=== PATIENT | male | born 1950 | race Caucasian/White ===

== ENCOUNTER 2025-06-22 13:16 | Inpatient (IN) | payer MEDICARE, SELFPAY ==
--- OUTSIDE RECORDS SUMMARY | 2025-06-17 14:30 | XMS_ITS | Encounter Summary ---
Author Organization [facility] Address [facility] – [id number] [address] [place] [address] Care Team Providers Care Rug Cleaner Helper Name Role Phone Brayan Michaud MD Primary Care Provider [phone] Reason for Visit * Reason Comments Knee Pain Started years ago. L eft knee Encounter Details Date Type Department Care Team (Latest Contact Info) Description 06/17/2025 2:30 PM EDT [facility] [address] [place] [phone] Brayan Michaud MD [address] [place] [address], [address] [place], [place] [phone] Primary osteoarthritis of left knee (Primary Dx) Social History Tobacco Use Types Packs/Day Years Used Date Smoking Tobacco: Never Smokeless Tobacco: Never Alcohol Use Standard Drinks/Week Comments Yes 3 (1 standard drink = 0.6 oz pur e alcohol) Barely PHQ-2 Answer Date Recorded Total Score 12 11/01/2024 Childcare Answer Date Recorded Childcare Unknown 03/14/2019 Employment Answer Date Recorded Employment Unknown 03/14/2019 Hunger Screening Answer Date Recorded Within the past 12 months we worried whether our food would run out before we got money to buy more. Never True 06/17/2025 Within the past 12 months th e food we bought just didn't last and we didn't have money to get more. Never True 06/17/2025 Purpose - Life Answer Date Recorded Purpose and direction in life Unknown Sex and Gender Information Value Date Recorded Sex Assigned at Not on file Legal Sex Male 11:45 AM EDT Gender Identity Not on file Sexual Orientation Not on file documented as of this encounter Last Filed Vital Signs Vital Sign Reading Time Taken Comments Blood Pressure 156/94 06/17/2025 2:23 PM EDT Pulse 63 06/17/2025 2:23 PM EDT Temperature 36.5 C (97.7 F) 06/17/2025 2:23 PM EDT Respiratory Rate - - Oxygen Saturation 98% 06/17/2025 2:23 PM EDT Inhaled Oxygen Concentration - - Weight 141 kg (310 lb 12.8 oz) 06/17/2025 2:23 P M EDT Height 172.7 cm (5' 8 ) 06/17/2025 2:23 PM EDT Body Mass Index 47.26 06/17/2025 2:23 PM EDT documented in this encounter Progress Notes * Brayan Michaud MD - 06/17/2025 2:30 PM EDT Subjective Patient ID: Jim Gleason is a 75 y.o. male. He has a history of left knee trouble in the past, having arthroscopic surgery years ago. Recently his knee has been increasingly hurting and he has trouble putting weight on it. No known new injury.It does not give out. It does swell a little sometimes. He has trouble walking just a short distance. Sometimes the top of his L foot hurts also. The following portions of the patient's history were reviewed and updated as appropriate: allergies, current medications, past medical history, past social history, past surgical history, and problemlist. Review of Systems Objective Physical Exam Constitutional: Comments: He is not acutely distressed. Weight is well above ideal target. Musculoskeletal: Comments: L knee has no increased warmth or joint swelling. Some tenderness along the medial joint line. No mass behind the knee. No instability. Assessment/Plan Reviewed with him. Verbal consent obtained, risk of infection reviewed. Under sterile conditions, 1.5 inch 22G needle introduced into the joint space from a medial approach. 2 ml 2% xylocaine and 40 mg Kenalog injected. Well tolerated. Will check xray and do a short trial of NSAID. Further pending his course. If symptoms continue, may need ortho input. Diagnoses and all orders for this visit: Primary osteoarthritis of left knee - X-ray knee left 3 views; Future - naproxen (NAPROSYN) 500 mg tablet; Take 1 tablet (500 mg total) by mouth in the morning and 1 tablet (500 mg total) in the evening. Take with meals. BMI >47 Patient noted to have elevated BMI and the following intervention(s) were applied: encouragement to exercise once his knee issue has been addressed to allow increased activity. documented in this encounter Plan of Treatment Upcoming Encounters Date Type Department Care Team (Late st Contact Info) Description 11/04/2025 1:30 PM EST Office Visit [facility] Internal Medicine/Pediatrics [address] [place] [address] [address] [place] [address] Brayan Michaud MD [address] [place] [address], [address] [place], [place] [phone] 12/23/2025 2:45 PM EDT Office Visit [facility] [address] [place] [address] [place] [address] [phone] Jim Hubbard MD [address] [place] [phone] documented as of this encounter Results * X-ray knee left 3 views (06/18/2025 1:14 PM EDT) Anatomical Region Laterality Modality Lower Extremities, MSK, Knee Left Com puted Radiography 06/18/2025 1:18 PM EDT Narrative 06/18/2025 1:19 PM EDT History: Pain. No known injury. Pain medially Study: Left Knee Three view study. Comparison: None Impression: No acute abnormality in the left knee.Changes due to severe osteoarthropathy are appreciated. There is complete loss in the medial compartment noted. No concerning effusion. Finalized by Leann Painter MD on 06/18/2025 1:19 PM Procedure Note Leann Painter MD - 06/18/2025 History: Pain. No known injury. Pain medially Study: Left Knee Three view study. Comparison: None Impression: No acute abnormality in the left knee.Changes due to severeosteoarthropathy are appreciated. There is complete loss in the medialcompartment noted. No concerning effusion. Finalized by Leann Painter MD on 06/18/2025 1:19 PM Brayan Michaud MD IMG DIAGNOSTIC IMAGING ORDERA BLES Final Result documented in this encounter Visit Diagnoses Diagnosis Primary osteoarthritis of left knee- Primary Primary osteoarthritis of left knee documented in this encounter Additional Health Concerns Assessment Noted Time PHQ-9 Depression Total Score: 12 11/01/ 025 1:00 PM EST A Body Mass Index follow-up plan has been documented for the patient 06/17/2025 8:29 PM EDT documented as of this encounter Care Teams Rug Cleaner Helper Relationship Specialty Start Date End Date Brayan Michaud MD [address] [place] [address], [address] [place] [address] PCP - General Pediatrics 06/13/17 documented as of this encounter
--- OUTSIDE RECORDS SUMMARY | 2025-06-18 12:51 | XMS_ITS | Encounter Summary ---
Author Organization [facility] Address [id number] [address] [place] [address] Care Team Providers Care Extrusion Die Corrector Name Role Phone Brayan Michaud MD Primary Care Provider [phone] Encounter Details Date Type Department Care Team (Latest Contact Info) Description 06/18/2025 12:51 PM EDT - 06/18/2025 11:59 PM EDT Hospital Encounter [facility] - Radiology [address] [place] [address] Brayan Michaud MD [address] [place] [address], [address] [place], [place] [phone] Primary osteoarthritis of left knee Discharge Disposition: Home Social History Tobacco Use Types Packs/Day Years [...] got money to buy more. Never True 06/19/2025 Within the past 12 months th e food we bought just didn't last and we didn't have money to get more. Never True 06/19/2025 Purpose - Life Answer Date Recorded Purpose and direction in life Unknown Sex and Gender Information Value Date Recorded Sex Assigned at Not on file Legal Sex Male 11:45 AM EDT Gender Identity Not on file Sexual Orientation Not on file documented as of this encounter Medications at Time of Discharge ALPRAZolam (XANAX) 0.5 mg tabletIndications:An xiety Take 1 tablet (0.5 mg total) by mouth 2 (two) times a day as needed for anxiety. 20 tablet 10/28/2022 amLODIPine (NORVASC) 10 mg tablet Take 1 tablet (10 mg total) by mouth in the morning. 90 tablet 3 12/27/2024 multivitamin capsule Take 1 capsule by mouth in the morning. naproxen (NAPROSYN) 500 mg tabletIndications:Pr imary osteoarthritis of left knee Take 1 tablet (500 mg total) by mouth in the morning and 1 tablet (500 mg total) in the evening. Take with meals. 30 tablet 06/17/2025 pantoprazole (PROTONIX) 40 mg EC tablet TAKE 1 TABLET BY MOUTH EVERY DAY 90 tablet 09/17/2024 documented as of this encounter Plan of Treatment Upcoming Encounters Date Type Department Care Team (Late st Contact Info) Description 11/04/2025 1:30 PM EST Office Visit [facility] Internal Medicine/Pediatrics [address] [place] [address] [address] [place] [address] Brayan Michaud MD [address] [place] [address], [address] [place], [place] [phone] 12/23/2025 2:45 PM EDT Office Visit [facility] [address] [place] [address] [place] [address] [place] [address] Jim Hubbard MD [address] [place] [address] documented as of this encounter Procedures Procedure Name Priority Date/Time Associated Diagnosis Comments XR KNEE LT 3 VWS Routine 06/18/2025 1:14 PM EDT Primary osteoarthritis of left knee documented in this encounter Results * X-ray knee left [...] Visit Diagnoses Diagnosis Primary osteoarthritis of left knee documented in this encounter Additional Health Concerns Assessment Noted Time PHQ-9 Depression Total Score: 12 11/01/ 025 1:00 PM EST A Body Mass Index follow-up plan has been documented for the patient 06/17/2025 8:29 PM EDT documented as of this encounter Care Teams Extrusion Die Corrector Relationship Specialty Start Date End Date Brayan Michaud MD [address] [place] [address], [address] [place] [address] PCP - General Pediatrics 06/13/17 documented as of this encounter
--- OUTSIDE RECORDS SUMMARY | 2025-06-19 13:15 | XMS_ITS | Encounter Summary ---
Author Organization [facility] Address [facility] [id number] [address] [place] [address] Care Team Providers Care Senior Software Manager Name Role Phone Brayan Michaud MD Primary Care Provider [phone] Reason for Visit * Reason Comments Follow-up Encounter Details Date Type Department Care Team (Late st Contact Info) Description 06/19/2025 1:15 PM EDT Office Visit [facility] [address] [place] [address] [place] [phone] Jim Hubbard MD [address] [place] [address] Vitamin D deficiency (Primary Dx); Elevated PSA Social History Tobacco Use Types Packs/Day Years [...] Sign Reading Time Taken Comments Blood Pressure 179/96 06/19/2025 1:06 PM EDT Pulse 75 06/19/2025 1:06 PM EDT Temperature - - Respiratory Rate - - Oxygen Saturation - - Inhaled Oxygen Concentration - - Weight 140.6 kg (310 lb) 06/19/2025 1:06 PM EDT Height 172.7 cm (5' 8 ) 06/19/2025 1:06 PM EDT Body Mass Index 47.14 06/19/2025 1:06 PM EDT documented in this encounter Progress Notes * Jim Hubbard MD - 06/19/2025 1:15 PM EDT Images from the original note were not included. [address] [place] [phone] Patient: Jim Garcíaura Date of : 1950 Encounter Date: 06/19/2025 History of Present Illness: The patient is a 75 y.o. male, an established patient, and is here for Chief Complaint Patient presents with Follow-up . History of elevated PSA course Here modifying factors time. Quality PSA as below. Regarding vitamin-D deficiency patient does takesupplement daily. Urinalysis today: No results for input(s): EXTPOCURCO , EXTPOCURCH , EXTPOCAPP , EXTPOCURBS , EXTPOCURBIL , EXTPOCUKET , EXTPOCUSPG , EXTPOCUHGB , EXTPOCUPRO , EXTPOCUURO , EXTPOCULEU , EXTPOCUNIT , EXTPOCUWBC , EXTPOCUBLD , EXTPOCURBC , EXTPOCUCRY , EXTPOCUBAC , EXTPOCUTREP , EXTPOCUPH , EXTPOCUL EE in the last 72 hours. Last BUN and creatinine: Lab Results Component Value Date BUN 20 11/01/2024 Lab Results Component Value Date CREATININE 1.39 (H) 11/01/2024 Last PSA: Lab Results Component Value Date PSA 3.96 06/14/2025 PSA 5.88 (H) 03/05/2025 PSA 5.20 (H) 11/01/2024 PSA 4.16 (H) 06/20/2023 PSA 4.22 (H) 10/29/2022 No results found for: PROSTATICSP Past Medical, Family, and Social History Update: The following portions of the patient's history were reviewed and updated as appropriate: allergies, current medications, past family history, past medical history, past social history, past surgicalhistory and problem list. Past Medical History: Diagnosis Date Acute arthritis Left knee Hypertension Hypertriglyceridemia Kidney stones Obesity Obstructive sleep apnea Osteoarthritis Past Surgical History: Procedure Laterality Date ABDOMINAL SURGERY APPENDECTOMY CARPAL TUNNEL RELEASE CATARACT EXTRACTION COLONOSCOPY KNEE ARTHROSCOPY LITHOTRIPSY VASECTOMY Family History Problem Relation Age of Onset Colon cancer Mother Current Outpatient Medications Medication Sig Dispense Refill ALPRAZolam (XANAX) 0.5 mg tablet Take 1 tablet (0.5 mg total) by mouth 2 (two) times a day as needed for anxiety. 20 tablet 0 amLODIPine (NORVASC) 10 mg tablet Take 1 tablet (10 mg total) by mouth in the morning. 90 tablet 3 multivitamin capsule Take 1 capsule by mouth in the morning. naproxen (NAPROSYN) 500 mg tablet Take 1 tablet (500 mg total) by mouth in the morning and 1 tablet(500 mg total) in the evening. Take with meals. 30 tablet 0 pantoprazole (PROTONIX) 40 mg EC tablet TAKE 1 TABLET BY MOUTH EVERY DAY 90 tablet 0 No current facility-administered medications for this visit. (All medications reviewed and updated by provider since last office visit or hospitalization) Allergies: Patient has no known allergies. Tobacco History: Social History Tobacco Use Smoking Status Never Smokeless Tobacco Never (If patient a smoker, smoking cessation counseling offered) Social History: Social History Substance and Sexual Activity Alcohol Use Yes Alcohol/week: 3.0 standard drinks of alcohol Types: 3 Drinks containing 0.5 oz of alcohol per week Comment: Barely Review of Systems: General: Negative for chills and fever. Cardiovascular: Negative for chest pain and shortness of breath. Gastrointestinal: Negative for constipation, diarrhea, nausea, and vomitting. -per HPI Physical Exam: BP (!) 179/96 Pulse 75 Ht 172.7 cm (5' 8 ) Wt (!) 140.6 kg (310 lb) BMI 47.14 kg/m?? Nontoxic no apparent distress. Respirations nonlabored. Skin is dry. Awake alert oriented x3. Assessment and Plan: Jim was seen today for follow-up. Diagnoses and all orders for this visit: Vitamin D deficiency - Vitamin D 25 hydroxy; Future Elevated PSA - Prostatic specific antigen, diagnostic; Future Problem List High Vitamin D deficiency - Primary Overview ==== 03/12/2025 ==== vitamin-D level as low 25. He is already on a daily multivitamin. Plan: Supplement this with the 2000 [employer] vitamin D3. Repeat vitamin-D in about 6 months or so Relevant Orders Vitamin D 25 hydroxy Elevated PSA Overview Size: 5.0 x 4.7?x 3.6 cm Volume: 44 mL PSA Density: 0.12 ng/mL^2 ==== 06/19/2025 ==== PSA did improve to 3.96. Technically normal. ==== 03/12/2025 ==== Established problem, worsening. PSA is higher 5.88. Plan: Per discussion below patient wants PSA in [place] ==== 01/02/2025 ==== ### MRI PIRADS category 2. PSA density 0.12. He understands the 10% false negative rate. We went through the options of proceed with prostate ultrasound biopsy verses observation with continue PSA monitoring. Patient wishes just to have PSA monitoring this point. We did discuss briefly Exosome Dx but generally speaking it tends to give us a middle of the road value. ====11/14/24====PSA 5.20. Up from 4.16 in 2022. TREV limited. He agrees to MRI Relevant Orders Prostatic specific antigen, diagnostic Follow-up: Six months PSA vitamin-D level return clinic Jim Hubbard MD Urology serves as the continuing focal point for providing ongoing care for a single, serious, or complex conditionis history of elevated PSA requiring ongoing follow up. Ordered PSA ordered vitamin-D 2 or more chronic urologic conditions addressed today. This note was created with the assistance of a speech recognition program. While intending to generate a timely document that accurately reflects the content of the visit, no guarantee can be provided that every grammatical or spelling mistake has been or will be identified or corrected. Thank you for your understanding. documented in this encounter Plan of Treatment Upcoming Encounters Date Type Department Care Team (Late st Contact Info) Description 11/04/2025 1:30 PM EST Office Visit [facility] Internal Medicine/Pediatrics [address] [place] [address] [address] [place] [phone] Brayan Michaud MD [address] [place] [address], [address] [place] [address] 12/23/2025 2:45 PM EDT Office Visit [facility] [address] [place] [address] [place] [place] [phone] Jim Hubbard MD [address] [place] [phone] Scheduled Orders Name Type Priority Associated Diagnoses Orde r Schedule Prostatic specific antigen, diagnostic Lab Routine Elevated PSA Expected: 12/17/2025, Expires: 06/19/2026 Vitamin D 25 hydroxy Lab Routine Vitamin D deficiency Expected: 12/17/2025, Expires: 06/19/2026 documented as of this encounter Visit Diagnoses Diagnosis Vitamin D deficiency- Primary Elevated PSA Elevated prostate specific antigen (PSA) documented in this encounter Additional Health Concerns Assessment Noted Time PHQ-9 Depression Total Score: 12 025 1:00 PM EST A Body Mass Index follow-up plan has been documented for the patient 06/17/2025 8:29 PM EDT documented as of this encounter Care Teams Senior Software Manager Relationship Specialty Start Date End Date Brayan Michaud MD [address] [place] [address], [address] [place] [address] PCP - General Pediatrics 06/13/17 documented as of this encounter
--- OUTSIDE RECORDS SUMMARY | 2025-06-21 20:23 | XMS_ITS | Encounter Summary ---
Author Organization [facility] [employer] s tem Address [id number] [address] [place] [address] Care Team Providers Care Lunch Truck Operator Name Role Phone Brayan Michaud MD Primary Care Provider Reason for Visit * Reason Comments Fall Pt reports to ER via EMS after falling from the toilet. Pt reported pain in his ribs to EMS but has no c/o pain at this time. Pt is A&O x4 upon triage. Encounter Details Date Type Department Care Team (Late st Contact Info) Description 06/21/2025 8:23 PM EDT - 06/21/2025 11:28 PM EDT Emergency [facility] - Emergency [address] [place] [phone] Jim Mora, DO [address] [place] [address] Tyson Neil, DO [address] [place] [address] Fall, initial encounter (Primary Dx) Discharge Disposition: Home Social History Tobacco Use [...] got money to buy more. Never True 06/21/2025 Within the past 12 months th e food we bought just didn't last and we didn't have money to get more. Never True 06/21/2025 Purpose - Life Answer Date Recorded Purpose and direction in life Unknown Sex and Gender Information Value Date Recorded Sex Assigned at Not on file Legal Sex Male 11:45 AM EDT Gender Identity Not on file Sexual Orientation Not on file documented as of this encounter Last Filed Vital Signs Vital Sign Reading Time Taken Comments Blood Pressure 162/87 06/21/2025 10:30 PM EDT Pulse 76 06/21/2025 10:30 PM EDT Temperature 36.8 C (98.3 F) 06/21/2025 8:30 PM EDT Respiratory Rate 11 06/21/2025 8:30 PM EDT Oxygen Saturation 90% 06/21/2025 10:30 PM EDT Inhaled Oxygen Concentration - - Weight 140.6 kg (310 lb) 06/21/2025 8:30 PM EDT Height - - Body Mass Index 47.14 06/19/2025 1:06 PM EDT documented in this encounter Discharge Instructions * Attachments The following attachments cannot be sent through Care Everywhere. * Preventing falls ??? ED discharge instructions (Bulgarian) documented in this encounter Medications at Time of Discharge [...] EST Office Visit [facility] [address] [place] [address] 1 [place] [phone] Brayan Michaud MD [facility]5 [facility], [address] [place] [address] 12/23/2025 2:45 PM EDT Office Visit [facility] [address] [place] [address] [place] [address] [place] [phone] Jim Hubbard MD [address] [place] [phone] documented as of this encounter Procedures Procedure Name Priority Date/Time Associated Diagnosis Comments CT CERVICAL SPINE WO CONT STAT 06/21/2025 9:[address] BRAIN WO CONT STAT 06/21/2025 9:43 PM EDT XR RIBS RT 3 VWS W PA CHEST STAT 06/21/2025 9:30 PM EDT EXTRA TUBES BLUE TOP Routine 06/21/2025 8:50 PM EDT LACTATE W/ REFLEX STAT 06/21/2025 8:5 0 PM EDT EXTRA TUBES Routine 06/21/2025 8:50 PM EDT CBC WITH AUTO DIFFERENTIAL STAT 06/21/2025 8:50 PM EDT C-REACTIVE PROTEIN STAT 06/21/2025 8: 50 PM EDT MAGNESIUM STAT 06/21/2025 8:50 PM EDT COMPREHENSIVE METABOLIC PANEL STAT 06/21/2025 8:50 PM EDT documented in this encounter Results * CT cervical spine without contrast (06/21/2025 9:43 PM EDT) Anatomical Region Laterality Modality MSK, Neuro, Spine, C-spine, Spine Covera N/A Computed Tomography 06/21/2025 10:2 2 PM EDT Narrative 06/21/2025 10:24 PM EDT EXAM: CERVICAL SPINE CT WITHOUT CONTRAST CLINICAL INFORMATION: Fall. TECHNIQUE: CT cervical spine was performed utilizing thin section CT imaging without contrast. Coronal and sagittal reformatted images were obtained and reviewed. Automated exposure control was utilized. COMPARISON: None. FINDINGS: There is slight straightening of the normal lordotic curvature of the cervical spine. There is no malalignment within the cervical spine. There is no evidence for an acute displaced fracture. There is no significant loss of the disc space heights. 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 There is no evidence for post-traumatic paravertebral soft tissue abnormalities. The limited visualized lung apices are unremarkable. There is a 3 cm nodule in the left thyroid lobe. IMPRESSION: 1. No evidence for an acute displaced fracture of the cervical spine. 2. There is a 3 cm nodule in the left thyroid lobe. Further evaluation with a follow-up thyroid ultrasound on a routine nonemergent basis is recommended. All CT scans at this facility use dose modulation, iterative reconstruction, and/or weight based dosing when appropriate to reduce radiation dose to as low as reasonably achievable. Finalized by Vaughn Esquivel MD on 06/21/2025 10:24 PM Procedure Note Vaughn Esquivel MD - 06/21/2025 EXAM: CERVICAL SPINE CT WITHOUT CONTRAST CLINICAL INFORMATION: Fall. TECHNIQUE: CT cervical spine was performed utilizing thin section CTimaging without contrast. Coronal and sagittal reformatted images wereobtained and reviewed. Automated exposure control was utilized. COMPARISON: None. FINDINGS: There is slight straightening of the normal lordotic curvature of thecervical spine. There is no malalignment within the cervical spine. Thereis no evidence for an acute displaced fracture. There is no significantloss of the disc space heights. There is focal chronic mild left C2-3facet osteoarthropathy. There is no evidence for post-traumatic paravertebralsoft tissue abnormalities. The limited visualized lung apices areunremarkable. There is a 3 cm nodule in the left thyroid lobe. IMPRESSION: 1. No evidence for an acute displaced fracture of the cervical spine. 2. There is a 3 cm nodule in the left thyroid lobe. Further evaluationwith a follow-up thyroid ultrasound on a routine nonemergent basis isrecommended. All CT scans at this facility use dose modulation, iterativereconstruction, and/or weight based dosing when appropriate to reduceradiation dose to as low as reasonably achievable. Finalized by Vaughn Esquivel MD on 06/21/2025 10:24 PM Jim Mora DO IMG CT ORDERABLES Final Result * CT brain without contrast (06/21/2025 9:43 PM EDT) Anatomical Region Laterality Modality Neuro, Head, Head and Neck, Neuro Covera N/A Computed Tomography 06/21/2025 10:2 1 PM EDT Narrative 06/21/2025 10:[address]contrast head CT, 06/21/2025 History: Pain, post fall Comparison: None Technique: Multi-detector CT performed through the brain without IV contrast. Automated exposure control was utilized. Findings: There is no intracranial hemorrhage, extra-axial fluid collection, mass effect, or hydrocephalus. There is no midline shift. Basilar cisterns are patent. Briones-white matter differentiation is appropriate. No definite acute infarct identified. The visualized orbits, paranasal sinuses and mastoid air cells are unremarkable. Osseous structures are intact. IMPRESSION: 1. No acute intracranial process. All CT scans at this facility use dose modulation, iterative reconstruction, and/or weight based dosing when appropriate to reduce radiation dose to as low as reasonably achievable. Finalized by Marin Garcia MD on 06/21/2025 10:25 PM Procedure Note Marin Garcia MD - 06/21/[address], 06/21/2025 History: Pain, post fall Comparison: None Technique: Multi-detector CT performed through the brain without IVcontrast. Automated exposure control was utilized. Findings: There is no intracranial hemorrhage, extra-axial fluidcollection, mass effect, or hydrocephalus. There is no midline shift.Basilar cisterns are patent. Briones-white matter differentiation isappropriate. No definite acute infarct identified. The visualizedorbits, paranasal sinuses and mastoid air cells are unremarkable. Osseous structures are intact. IMPRESSION: 1. No acute intracranial process. All CT scans at this facility use dose modulation, iterativereconstruction, and/or weight based dosing when appropriate to reduceradiation dose to as low as reasonably achievable. Finalized by Marin Garcia MD on 06/21/2025 10:25 PM Jim Mora DO IMG CT ORDERABLES Final Result * X-ray ribs right 3 views with pa chest (06/21/2025 9:30 PM EDT) Anatomical Region Laterality Modality MSK, Chest Right Computed Radiogr aphy 06/21/2025 10:1 9 PM EDT Narrative 06/21/2025 10:23 PM EDT History: Right-sided chest Pain status post fall Exam/Technique: AP view of the chest followed by AP and oblique views for evaluation of the right rib cage Comparison: No relevant prior studies available. Findings/impression: There is elevation of the right diaphragm likely on a chronic basis. Cardiac size stable. There is mild prominence of the central vascular tree likely due to low lung volume. There is no gross focal consolidation, pleural effusion or pneumothorax. There is no gross displaced rib fracture however, evaluation is compromised by patient's body habitus and x-ray penetration. Finalized by Gale Petty MD on 06/21/2025 10:23 PM Procedure Note Gale Petty MD - 06/21/2025 History: Right-sided chest Pain status post fall Exam/Technique: AP view of the chest followed by AP and oblique views for evaluation ofthe right rib cage Comparison: No relevant prior studies available. Findings/impression: There is elevation of the right diaphragm likely on a chronic basis.Cardiac size stable. There is mild prominence of the central vascular treelikely due to low lung volume. There is no gross focal consolidation, pleural effusion or pneumothorax. There is no gross displaced rib fracture however, evaluation iscompromised by patient's body habitus and x-ray penetration. Finalized by Gale Petty MD on 06/21/2025 10:23 PM us Jim Mora DO IMG DIAGNOSTIC IMAGING ORDERABLES Final Result * Light Blue Top (06/21/2025 8:50 PM EDT) Extra Tube Auto Resulted 06/21/2025 10:01 PM EDT [facility] Blood Venous blood / Unknown 06/21/2025 8:50 PM EDT 06/21/2025 8:52 PM EDT us Jim Mora DO LAB BLOOD ORDERABLES Fi nal Result Performing Organization Address City/[facility]/ZIP Co de Phone Number [address] [place] [address], [place] * Magnesium (06/21/2025 8:50 PM EDT) MAGNESIUM 2.1 1.8 - 2.6 mg/dL 06/21/2025 9:16 PM EDT [facility] Blood Venous blood / Unknown Venipuncture / Unknown 06/21/2025 8:50 PM EDT 06/21/2025 8:52 PM EDT us Jim Mora DO LAB BLOOD ORDERABLES Fi nal Result Performing Organization Address City/[facility]/ZIP Co de Phone Number [address] [place] [address], [place] * Lactate w/ Reflex (06/21/2025 8:50 PM EDT) LACTATE W/REFLEX 1.2 0.4 - 2.0 mmol/L 06/21/2025 9:11 PM EDT [facility] Blood Venous blood / Unknown Venipuncture / Unknown 06/21/2025 8:50 PM EDT 06/21/2025 8:52 PM EDT Narrative [facility] - 06/21/2025 9:11 PM EDT Result did not trigger repeat Lactate, re-order if needed. us Jim Mora DO LAB BLOOD ORDERABLES Fi nal Result Performing Organization Address City/[facility]/ZIP Co de Phone Number [address] [place] [address], [place] * C-reactive protein (06/21/2025 8:50 PM EDT) C REACTIVE PROTEIN <0.5 <=0.7 mg/dL 06/21/2025 9:16 PM EDT [facility] Blood Venous blood / Unknown Venipuncture / Unknown 06/21/2025 8:50 PM EDT 06/21/2025 8:52 PM EDT us Jim Mora DO LAB BLOOD ORDERABLES Fi nal Result Performing Organization Address City/[facility] Co de Phone Number [address] [place] [address], [place] * (ABNORMAL) Comprehensive metabolic panel (06/21/2025 8:50 PM EDT) SODIUM 140 134 - 146 mmol/L 06/21/2025 9:16 PM EDT [facility] POTASSIUM 3.3(L) 3.5 - 5.0 mmol/L 06/21/2025 9:16 PM EDT [facility] CHLORIDE 105 98 - 109 mmol/L 06/21/2025 9:16 PM EDT [facility] CARBON DIOXIDE 25 22 - 32 mmol/L 06/21/2025 9:16 PM EDT [facility] ANION GAP 10 5 - 15 mmol/L 06/21/2025 9:16 PM EDT [facility] BLOOD UREA NITROGEN 30(H) 5 - 27 mg/dL 06/21/2025 9:16 PM EDT [facility] CREATININE 1.29(H) 0.70 - 1.20 mg/dL 06/21/2025 9:16 PM EDT [facility] Comment:METHOD TRACEABLE TO IDKY STANDARD GLUCOSE 118(H) 65 - 99 mg/dL 06/21/2025 9:16 PM EDT [facility] CALCIUM 8.7 8.5 - 10.5 mg/dL 06/21/2025 9:16 PM EDT [facility] TOTAL PROTEIN 7.5 6.0 - 8.0 g/dL 06/21/2025 9:16 PM EDT [facility] ALBUMIN 3.9 3.2 - 5.3 g/dL 06/21/2025 9:16 PM EDT [facility] ALKALINE PHOSPHATASE 79 39 - 130 U/L 06/21/2025 9:16 PM EDT [facility] AST 27 <=41 U/L 06/21/2025 9:16 PM EDT [facility] ALT 23 <=40 U/L 06/21/2025 9:16 PM EDT [facility] BILIRUBIN,TOTAL 1.1 0.3 - 1.2 mg/dL 06/21/2025 9:16 PM EDT [facility] EGFR Non-Race Dependent 59(L) >=60 ml/min/1.7 3sq.m 06/21/2025 9:16 PM EDT [facility] Comment: eGFR not reported due to non-numeric value for Creatinine. Reported eGFR is based on the CKD-EPI 2020 equation that does not use a race coefficient. Blood Venous blood / Unknown Venipuncture / Unknown 06/21/2025 8:50 PM EDT 06/21/2025 8:52 PM EDT us Jim Mora DO LAB BLOOD ORDERABLES Fi nal Result [facility] [address] [place] [address], [place] * (ABNORMAL) CBC auto differential (06/21/2025 8:50 PM EDT) WBC 12.7(H) 4 - 11 x10E9/L 06/21/2025 8:59 PM EDT [facility] RBC Count 4.85 4.1 - 5.7 X10E12/L 06/21/2025 8:59 PM EDT [facility] Hemoglobin 14.3 13 - 17 g/dL 06/21/2025 8:59 PM EDT [facility] Hematocrit 42.7 39 - 50 % 06/21/2025 8:59 PM EDT [facility] MCV 88 80 - 100 fL 06/21/2025 8:59 PM EDT [facility] MCH 29.4 27 - 34 pg 06/21/2025 8:59 PM EDT [facility] MCHC 33.4 32 - 36 g/dL 06/21/2025 8:59 PM EDT [facility] RDW 14.1 11.5 - 15 % 06/21/2025 8:59 PM EDT [facility] Platelet Count 210 150 - 450 X10E9/L 06/21/2025 8:59 PM EDT [facility] MPV 9.9 7 - 12 fL 06/21/2025 8:59 PM EDT [facility] Neutrophils % 85.1 % 06/21/2025 8:59 PM EDT [facility] Lymphocytes % 8.4 % 06/21/2025 8:59 PM EDT [facility] Monocytes % 5.4 % 06/21/2025 8:59 PM EDT [facility] Eosinophils % 0.8 % 06/21/2025 8:59 PM EDT [facility] Basophils % 0.3 % 06/21/2025 8:59 PM EDT [facility] Neutrophils Absolute (A) 10.8(H) 1.5 - 6.6 10*3/uL 06/21/2025 8:59 PM EDT [facility] Lymphocytes Absolute 1.1 1.0 - 3.5 10*3/uL 06/21/2025 8:59 PM EDT [facility] Monocytes Absolute 0.7 0.0 - 0.9 10*3/uL 06/21/2025 8:59 PM EDT [facility] Eosinophils Absolute 0.1 0.0 - 0.4 10*3/uL 06/21/2025 8:59 PM EDT [facility] Basophils Absolute 0.0 0.0 - 0.2 10*3/uL 06/21/2025 8:59 PM EDT [facility] Differential Type AUTOMATED DIFFERENTIAL 06/21/2025 8:59 PM EDT [facility] Blood Venous blood / Unknown Venipuncture / Unknown 06/21/2025 8:50 PM EDT 06/21/2025 8:52 PM EDT us Jim Mora DO LAB BLOOD ORDERABLES nal Result [facility] [address] [facility] [place] [address], documented in this encounter Visit Diagnoses Diagnosis Fall, initial encounter- Primary documented in this encounter Administered Medications Inactive Administered Medications - up to 3 most recent administrations Medication Order MAR Action Action Date Dose Rate Site potassium chloride (KLOR-CON M 20) CR tablet 40 mEq 40 mEq, oral, Once, On Tue06/21/25 at 212, For 1 dose, Do not crush or chew. Given 06/21/2025 9:38 PM EDT 40 mEq documented in this encounter Active and Recently Administered Medications Times are shown in EDT. Scheduled Medication Order 06/19/2025 06/20/2025 06/21/2025 potassium chloride (KLOR-CON M 20) CR tablet 40 mEq (COMPLETED) 40 mEq, oral, Once, On Tue06/21/25 at 212, For 1 dose, Do not crush or chew. 2137 (Given - Provid er: Carolina Burroughs RN) documented in this encounter Additional Health Concerns Assessment Noted Time PHQ-9 Depression Total Score: 12 11/01/ 025 1:00 PM EST A Body Mass Index follow-up plan has been documented for the patient 06/17/2025 8:29 PM EDT documented as of this encounter Care Teams Lunch Truck Operator Relationship Specialty Start Date End Date Brayan Michaud MD [address] [place] [address], [address] [place] [address] PCP - General Pediatrics 06/13/17 documented as of this encounter
[2025-06-22] VITALS (31 sets, daily range): BP systolic 129–182; BP diastolic 76–99; PULSE 61–88; TEMP 36.6–37.2; O2SAT 93–100; BMI 38.0; BMI 43.0
--- OUTSIDE RECORDS SUMMARY | 2025-06-22 13:23 | XMS_ITS | Encounter Summary ---
Author Organization [employer] Sys [employer] Address [id number] [address] [place] [address] Care Team Providers Care Training And Development Officer Name Role Phone Brayan Michaud MD Primary Care Provider [phone] Encounter Details Date Type Department Care Team (Latest Contact Info) Description 06/18/2025 Travel Social History Tobacco Use Types Packs/Day Years [...] on file documented as of this encounter Plan of Treatment Upcoming Encounters Date Type Department Care Team (Late st Contact Info) Description 11/04/2025 1:30 PM EST Office Visit [facility] [address] [place] [address] 1 [place] [phone] Brayan Michaud MD [address] [place] [address], 1 [place] [address] 12/23/2025 2:45 PM EDT Office Visit [facility] [address] [place] [address] [address] [facility] [address] Jim Hubbard MD [address] [place] [address] documented as of this encounter Visit Diagnoses Not on filedocumented in this encounter Additional Health Concerns Assessment Noted Time PHQ-9 Depression Total Score: 12 025 1:00 PM EST A Body Mass Index follow-up plan has been documented for the patient 06/17/2025 8:29 PM EDT documented as of this encounter Care Teams Training And Development Officer Relationship Specialty Start Date End Date Brayan Michaud MD [address] [place] [address], [address] [place] [address] PCP - General Pediatrics 06/13/17 documented as of this encounter
--- OUTSIDE RECORDS SUMMARY | 2025-06-22 13:23 | XMS_ITS | Clinical Summary ---
Author Organization [facility] Address [address] [place] [address] Care Team Providers Care Cheese Blender Name Role Phone Unavailable Primary Care Provider Unavailabl e Social History Tobacco Use Types Packs/Day Years Used Date Smoking Tobacco: Never Assessed Sex and Gender Information Value Date Recorded Sex Assigned at Not on file Legal Sex Male 7:20 PM EDT Gender Identity Not on file Sexual Orientation Not on file Plan of Treatment Health Maintenance Due Date Last Done Comments CT Colonography 1952 Colonoscopy 1952 Colorectal Cancer Screening 1950 FIT-DNA 1952 FIT 1950 FOBT 1950 Sigmoidoscopy 1950 Pneumococcal Vaccine: 65+ Ye ars (1 of 1 - PCV) 2002 Influenza Vaccine (#1) 2025 1, 07/01/2020, 07/07/2019, Additional history exists
--- OUTSIDE RECORDS SUMMARY | 2025-06-22 13:23 | XMS_ITS | Encounter Summary ---
Author Organization [facility] [employer] s tem Address [id number] [address] [place] [address] Care Team Providers Care Ent Consultant Name Role Phone Brayan Michaud MD Primary Care Provider [phone] Encounter Details Date Type Department Care Team (Late st Contact Info) Description 06/18/2025 [facility] [address] [place] [phone] Brayan Michaud MD [address] [place] [address], 1 [place], [place] [phone] X-ray knee left 3 views Social History Tobacco Use Types Packs/Day Years [...] EST Office Visit [facility] [address] [place] [address] [address] [place] [phone] Brayan Michaud MD [address] [place] [address], [address] [place], [place] [phone] 12/23/2025 2:45 PM EDT Office Visit [facility] [address] [place] [address] [place] [address] [place] [address] Jim Hubbard MD [address] [place] [address] documented as of this encounter Visit Diagnoses Not on filedocumented in this encounter Additional Health Concerns Assessment Noted Time PHQ-9 Depression Total Score: 12 025 1:00 PM EST A Body Mass Index follow-up plan has been documented for the patient 06/17/2025 8:29 PM EDT documented as of this encounter Care Teams Ent Consultant Relationship Specialty Start Date End Date Brayan Michaud MD [address] [place] [address], [address] [place], [place] [phone] PCP - General Pediatrics 06/13/17 documented as of this encounter
--- OUTSIDE RECORDS SUMMARY | 2025-06-22 13:23 | XMS_ITS | Encounter Summary ---
Author Organization [employer] Address [facility]-[id number] [address] [place] [address] Care Team Providers Care Maintenance Mechanic Helper Name Role Phone Brayan Michaud MD Primary Care Provider Reason for Visit * Reason Comments Med Refill Encounter Details Date Type Department Care Team (Late Contact Info) Description 12/25/2021 Refill [facility] [address] [place] [address] Brayan Michaud MD [address] [place] [address], [address] [place], [place] [phone] Social History Tobacco Use Types Packs/Day Years Used Date Smoking Tobacco: Never Smokeless Tobacco: Never Alcohol Use Standard Drinks/Week Comments Yes 0 (1 standard drink = 0.6 oz pur e alcohol) Barely PHQ-2 Answer Date Recorded Total Score 1 10/26/2021 Childcare Answer Date Recorded Childcare Unknown 03/14/2019 Employment Answer Date Recorded Employment Unknown 03/14/2019 Purpose - Life Answer Date Recorded Purpose and direction in life Unknown Sex and Gender Information Value Date Recorded Sex Assigned at Not on file Legal Sex Male 11:45 AM EDT Gender Identity Not on file Sexual Orientation Not on file documented as of this encounter Plan of Treatment Upcoming Encounters Date Type Department Care Team (Late Contact Info) Description 11/04/2025 1:30 PM EST Office Visit [facility] [address] [place] [address] Brayan Michaud MD [address] [place] [address], [address] [place] [address] 12/23/2025 2:45 PM EDT Office Visit [facility] [address] [place] [address] [place] [address] [place] [phone] Jim Hubbard MD [address] [place] [phone] documented as of this encounter Visit Diagnoses Not on filedocumented in this encounter Additional Health Concerns Assessment Noted Time PHQ-9 Depression Total Score: 1 10/26/19 22 1:00 PM EST documented as of this encounter Care Teams Maintenance Mechanic Helper Relationship Specialty Start Date End Date Brayan Michaud MD [address] [place] [address], [address] [place] [address] PCP - General Pediatrics 06/13/17 documented as of this encounter
--- OUTSIDE RECORDS SUMMARY | 2025-06-22 13:23 | XMS_ITS | Encounter Summary ---
Author Organization [employer] Address [id number] [address] [place] [address] Care Team Providers Care Junior Sales Representative Name Role Phone Brayan Michaud MD Primary Care Provider [phone] Encounter Details Date Type Department Care Team (Latest Contact Info) Description 06/14/2025 Travel Social History Tobacco Use Types Packs/Day [...] got money to buy more. Never True 03/12/2025 Within the past 12 months th e food we bought just didn't last and we didn't have money to get more. Never True 03/12/2025 Purpose - Life Answer Date Recorded Purpose [...] EST Office Visit [facility] [address] [place] [address] 1 [place] [phone] Brayan Michaud MD [address] [place] [address], 1 [place] [address] 12/23/2025 2:45 PM EDT Office Visit [facility] [address] [place] [address] [place] [address] [place] [address] Jim Hubbard MD [address] [place] [address] documented as of this encounter Visit Diagnoses Not on filedocumented in this encounter Additional Health Concerns Assessment Noted Time PHQ-9 Depression Total Score: 12 025 1:00 PM EST documented as of this encounter Care Teams Junior Sales Representative Relationship Specialty Start Date End Date Brayan Michaud MD [address] [place] [address], [address] [place] [address] PCP - General Pediatrics 06/13/17 documented as of this encounter
--- OUTSIDE RECORDS SUMMARY | 2025-06-22 13:23 | XMS_ITS | Clinical Summary ---
Author Organization [facility] Address [address] [place] [address] Care Team Providers Care Snubber Name Role Phone Unavailable Primary Care Provider Unavailabl e Medications tamsulosin (Flomax) 0.4 mg 24 hr capsuleIndicatio ns:Retention of urine, unspecified TAKE 1 CAPSULE BY MOUTH EVERY DAY 90 capsule 3 09/03/2024 Active Social History Tobacco Use Types Packs/Day Years Used Date Smoking Tobacco: Never Assessed [place] Safety & Environment Answer Date Rec orded Fear of Current or Ex-Partner Not on file Emotionally Abused Not on file 11/24/2023 Physically Abused Not on file 11/24/2023 Sexually Abused Not on file 11/24/2023 Physically or Sexually Abused Not on file Sex and Gender Information Value Date Recorded Sex Assigned at Not on file Legal Sex Male 12:07 AM EDT Gender Identity Not on file Sexual Orientation Not on file Last Filed Vital Signs Vital Sign Reading Time Taken Comments Blood Pressure 168/95 04/16/2022 9:40 AM EDT Pulse 70 04/16/2022 9:40 AM EDT Temperature - - Respiratory Rate - - Oxygen Saturation - - Inhaled Oxygen Concentration - - Weight 148 kg (326 lb) 04/16/2022 9:38 AM EDT Height 177.8 cm (5' 10 ) 04/16/2022 9:38 AM EDT Body Mass Index 46.78 04/16/2022 9:38 AM EDT Plan of Treatment Health Maintenance Due Date Last Done Comments CT Colonography 1952 Colonoscopy 1952 Colorectal Cancer Screening 1952 FIT-DNA 1952 FIT 1952 FOBT 1950 Medicare Annual Wellness (AWV) 1952 Sigmoidoscopy 1952 Depression Screening 1964 Adult Tetanus 1974 Pneumococcal Vaccine: 50+ Years (1 of 1 - PCV) 2002 Zoster Vaccines (1 of 2) 2002 Fall Risk Screening 2017 COVID-19 Vaccine (1 - season) 2025 Influenza Vaccine (#1) 2025 , 07/01/2020, 07/07/2019, Additional history exists HIB Vaccines Aged Out No longer eligi ble based on patient's age to complete this topic HPV Vaccines Aged Out No longer eligi ble based on patient's age to complete this topic IPV Vaccines Aged Out No longer eligi ble based on patient's age to complete this topic Meningococcal B Vaccine Aged Out No l onger eligible based on patient's age to complete this topic Meningococcal Vaccine Aged Out No harvey luis armando eligible based on patient's age to complete this topic Rotavirus Vaccines Aged Out No longer eligible based on patient's age to complete this topic Insurance AETNA MEDICARE ADVANTAGE
--- OUTSIDE RECORDS SUMMARY | 2025-06-22 13:23 | XMS_ITS | Encounter Summary ---
Author Organization [facility] Address [address] [place] [address] Care Team Providers Care Billet Shearer Name Role Phone Unavailable Primary Care Provider Unavailabl e Encounter Details Date Type Department Care Team (Late st Contact Info) Description 04/02/2024 Abstract [facility] [address] [place] [address] Yuki Crain, [facility] [address] [place] [address] Social History Tobacco Use Types Packs/Day Years Used Date Smoking Tobacco: Never Assessed Sex and Gender Information Value Date Recorded Sex Assigned at Not on file Legal Sex Male 7:20 PM EDT Gender Identity Not on file Sexual Orientation Not on file documented as of this encounter Plan of Treatment Not on file documented as of this encounter Visit Diagnoses Not on filedocumented in this encounter
--- OUTSIDE RECORDS SUMMARY | 2025-06-22 13:23 | XMS_ITS | Encounter Summary ---
Author Organization [employer] Address [facility] [id number] [address] [place] [address] Care Team Providers Care Hand Counter Name Role Phone Brayan Michaud MD Primary Care Provider [phone] Encounter Details Date Type Department Care Team (Latest Contact Info) Description 06/21/2025 Travel Social History Tobacco Use Types Packs/Day [...] EST Office Visit [facility] [address] [place] [address] 1 [place] [phone] Brayan Michaud MD [address] [place] [address], 1 [place] [address] 12/23/2025 2:45 PM EDT Office Visit [facility] [address] [place] [address] [address] [facility] [address] Jim Hubbard MD [address] [place] [address] documented as of this encounter Visit Diagnoses Not on filedocumented in this encounter Additional Health Concerns Assessment Noted Time PHQ-9 Depression Total Score: 12 025 1:00 PM EST A Body Mass Index follow-up plan has been documented for the patient 06/17/2025 8:29 PM EDT documented as of this encounter Care Teams Hand Counter Relationship Specialty Start Date End Date Brayan Michaud MD [address] [place] [address], [address] [place] [address] PCP - General Pediatrics 06/13/17 documented as of this encounter
--- OUTSIDE RECORDS SUMMARY | 2025-06-22 13:23 | XMS_ITS | Clinical Summary ---
Author Organization [employer] Address [facility] [id number] [address] [place] [address] Care Team Providers Care Ap Processor Name Role Phone Brayan Michaud MD Primary Care Provider [phone] Allergies No known active allergies Medications multivitamin capsule Take 1 capsule by mouth in the morning. Active ALPRAZolam (XANAX) 0.5 mg tabletIndications:A nxiety Take 1 tablet (0.5 mg total) by mouth 2 (two) times a day as needed for anxiety. 20 tablet 3 Active pantoprazole (PROTONIX) 40 mg EC tablet TAKE 1 TABLET BY MOUTH EVERY DAY 90 tablet 4 Active amLODIPine (NORVASC) 10 mg tablet Take 1 tablet (10 mg total) by mouth in the morning. 90 tablet 3 5 Active naproxen (NAPROSYN) 500 mg tabletIndications:P rimary osteoarthritis of left knee Take 1 tablet (500 mg total) by mouth in the morning and 1 tablet (500 mg total) in the evening. Take with meals. 30 tablet 5 Active Active Problems Problem Noted Date Diagnosed Date Vitamin D deficiency 03/12/2025 Overview (03/12/2025): ==== 03/12/2025 ==== vitamin-D level as low 25. He is already on a daily multivitamin. Plan: Supplement this with the 2000 [employer] vitamin D3. Repeat vitamin-D in about 6 months or so Elevated PSA 11/14/2024 Overview (06/19/2025): Size: 5.0 x 4.7?x 3.6 cm Volume: 44 mL PSA Density: 0.12 ng/mL^2 ==== 06/19/2025 ==== PSA did improve to 3.96. Technically normal. ==== 03/12/2025 ==== Established problem, worsening. PSA is higher 5.88. Plan: Per discussion below patient wants PSA in [place] ==== 01/02/2025 ==== ### MRI PIRADS category [...] 2022. TREV limited. He agrees to MRI Assessment & Plan (03/12/2025 2:41 PM EDT): We discussed proceeding with a straight with a prostate ultrasound biopsy. Waiting another 3 months for another PSA potential prostate ultrasound biopsy verses not worrying about this and being satisfied with the 90% negative predictive value. He chooses to watch the PSA see him back in 3 months Assessment & Plan (11/14/2024 2:08 PM EST): We will have him meet with Dr. Hubbard to review the results. Hypertriglyceridemia 10/21/2020 Benign prostatic hyperplasia with nocturia 10/21 Overview (03/12/2025): ==== 03/12/2025 ==== takes Flomax infrequently tolerates. Some modicum of benefit derived. Continue on current course. ==== 01/02/2025 ==== does have improvement in stream. Some very mild lightheadedness with a. This is getting better. He is on 1 tablet. We discussed per surveillance being very careful when changing position. He is comfortable at this point continue with the current course. is as well. Will monitor his course ====11/14/24====LUTS that were improved while he was taking Flomax 0.4mg. He wants to restart and is interested in taking 0.8mg nightly Multinodular goiter 10/21/2020 Other chest pain 09/21/2019 Essential hypertension 09/21/2019 Class 3 severe obesity due t o excess calories without serious comorbidity with body mass index (BMI) of 45.0 to 49.9 in adult 09/21/2019 Obstructive sleep apnea Osteoarthritis Kidney stones Overview (03/12/2025): ==== 03/12/2025 ==== has 2 small stones in the right 1 on left. By location nonobstructing. He was asymptomatic. Satisfied with the observation. Consideration for surveillance can be KUB down the road. I directly visualize the films with the patient and his . ====11/14/24==== history of kidney stones. I do not have his records, but he reports that he underwent percutaneous nephrolithotomy and ureteroscopy in . We will discuss surveillance imaging after we work up the elevated PSA Assessment & Plan (11/14/2024 2:10 PM EST): UA today dips for trace blood. I will send for microscopic exam and call him if positive Encounters Date Type Department Care Team Description 06/21/2025 8:23 PM EDT - 06/21/2025 11:28 PM EDT Emergency [facility] - Emergency [address] [place] [phone] Jim Mora, Tyson Corral, DO Samuel, initial encounter (Primary Dx) Discharge Disposition: Home 06/21/2025 Travel 06/19/2025 1:15 PM EDT Office Visit [facility] [address] [place] [phone] Jim Hubbard MD Vitamin D deficiency (Primary Dx); Elevated PSA 06/18/2025 12:51 PM EDT - 06/18/2025 11:59 PM EDT Hospital Encounter [facility] - Radiology [address] [facility] [place] [phone] Brayan Michaud MD Primary osteoarthritis of left knee Discharge Disposition: Home 06/18/2025 Results Follow-Up [facility] [address] [facility] [place] [phone] Brayan Michaud MD X-ray knee left 3 views 06/18/2025 Travel 06/17/2025 2:30 PM EDT Office Visit [facility] [address] [place] [address] Brayan Michaud MD Primary osteoarthritis of left knee (Primary Dx) 06/14/2025 Travel from Last 3 Months Immunizations Immunization Administration Dates Next Due COVID-19, mRNA, LNP-S, PF, 100mcg/0.5mL Dose ,11/28/2020 Influenza High Dose Preservative Free IM 019 Influenza Vaccine, Quadrivalent, Adjuvanted 06/04 Influenza, High-dose, Quadrivalent 07/10/2021 Influenza, Im Trivalent Preservative 08/07/2014, 09/07/2013 Influenza, Injectable, quadrivalent (PF) 018 Family History Medical History Relation Name Comments Colon cancer Mother Maria Isabel Relation Name Status Comments Mother Maria Isabel Social History Tobacco Use Types Packs/Day Years Used Date Smoking Tobacco: Never Smokeless Tobacco: Never Tobacco Cessation:Counseling Given: Not Answered Alcohol Use Standard Drinks/Week Comments Yes 3 [...] (310 lb) 06/21/2025 8:30 PM EDT Height 172.7 cm (5' 8 ) 06/19/2025 1:06 PM EDT Body Mass Index 47.14 06/19/2025 1:06 PM EDT Plan of Treatment Upcoming Encounters Date Type Department Care Team (Late st Contact Info) Description 11/04/2025 1:30 PM EST Office Visit [facility] [address] [place] [address] 1 [place] [address] Brayan Michaud MD [address] [place] [address], [address] [place], [place] [id number] 12/23/2025 2:45 PM EDT Office Visit [facility] [address] [place] [address] [place] [address] [place] [address] Jim Hubbard MD [address] [place] [address] Health Maintenance Due Date Last Done Comments DTaP,Tdap and Td Vaccines (1 - Tdap) 1971 Colonoscopy 1997 Zoster (Shingles) Vaccine (1 of 2) 2002 COVID-19 Vaccine (2023-2 5 season) 2025 07/17/2024, 07/18/2023, 08/16/2022, Additional history exists Influenza Vaccine 06/03/2025 07/17/2024, , 08/23/2022, Additional history exists Depression Screening 11/01/2025 11/01/2024 Fall Risk Screening 11/01/2025 11/01/2024 Medicare Annual Wellness Visit 11/01/2025 0 11/01/2024, 10/31/2023, 10/28/2022, Additional history exists Adult BMI Follow Up Plan 06/17/2026 06/17/2025 Adult BMI Screening 06/21/2026 06/21/2025 Tobacco Screening 06/21/2026 06/21/2025 Medical Devices Not on file Procedures Procedure Name Priority Date/Time Associated Diagnosis Comments CT CERVICAL SPINE WO CONT STAT 06/21/2025 9:[address] BRAIN WO CONT STAT 06/21/2025 9:43 PM EDT XR RIBS RT 3 VWS W PA CHEST STAT 06/21/2025 9:30 PM EDT EXTRA TUBES BLUE TOP Routine 06/21/2025 8:50 PM EDT EXTRA TUBES Routine 06/21/2025 8:50 PM EDT MAGNESIUM STAT 06/21/2025 8:50 PM EDT LACTATE W/ REFLEX STAT 06/21/2025 8:5 0 PM EDT C-REACTIVE PROTEIN STAT 06/21/2025 8: 50 PM EDT COMPREHENSIVE METABOLIC PANEL STAT 06/21/2025 8:50 PM EDT CBC WITH AUTO DIFFERENTIAL STAT 06/21/2025 8:50 PM EDT XR KNEE LT 3 VWS Routine 06/18/2025 1:14 PM EDT Primary osteoarthritis of left knee PROSTATIC SPECIFIC ANTIGEN, DIAGNOSTIC Routine 06/14/2025 11:35 AM EDT Elevated PSA from Last 3 Months Results * CT cervical spine without contrast [...] Tube Auto Resulted 06/21/2025 10:01 PM EDT [facility] Blood Venous blood / Unknown 06/21/2025 8:50 PM EDT 06/21/2025 8:52 PM EDT us Jim Mora DO LAB BLOOD ORDERABLES Fi nal Result Performing Organization Address [facility] Co de Phone Number [address] [place] [address], [place] * Lactate w/ Reflex (06/21/2025 8:50 PM EDT) LACTATE W/REFLEX 1.2 0.4 - 2.0 mmol/L 06/21/2025 9:11 PM EDT [facility] Blood Venous blood / Unknown Venipuncture / Unknown 06/21/2025 8:50 PM EDT 06/21/2025 8:52 PM EDT Narrative [facility] - 06/21/2025 9:11 PM EDT Result did not trigger repeat Lactate, re-order if needed. us Jim Mora DO LAB BLOOD ORDERABLES Fi nal Result Performing Organization Address City/[facility] Co de Phone Number [address] [place] [address], [place] * (ABNORMAL) CBC auto differential (06/21/2025 8:50 PM EDT) [facility] Signature WBC 12.7(H) 4 - 11 x10E9/L 06/21/2025 8:59 PM EDT [facility] RBC Count 4.85 4.1 - 5.7 X10E12/L 06/21/2025 8:59 PM EDT [facility] Hemoglobin 14.3 13 - 17 g/dL 06/21/2025 8:59 PM EDT [facility] Hematocrit 42.7 39 - 50 % 06/21/2025 8:59 PM EDT [facility] MCV 88 80 - 100 fL 06/21/2025 8:59 PM EDT [facility] MCH 29.4 27 - 34 pg 06/21/2025 8:59 PM EDT [facility] MCHC 33.4 32 - 36 g/dL 06/21/2025 8:59 PM EDT [facility] RDW 14.1 11.5 - 15 % 06/21/2025 8:59 PM EDT [facility] Platelet Count 210 150 - 450 X10E9/L 06/21/2025 8:59 PM EDT [facility] MPV 9.9 7 - 12 fL 06/21/2025 8:59 PM EDT [facility] Neutrophils % 85.1 % 06/21/2025 8:59 PM EDT [facility] Lymphocytes % 8.4 % 06/21/2025 8:59 PM EDT [facility] Monocytes % 5.4 % 06/21/2025 8:59 PM EDT [facility] Eosinophils % 0.8 % 06/21/2025 8:59 PM EDT [facility] Basophils % 0.3 % 06/21/2025 8:59 PM EDT [facility] Neutrophils Absolute (A) 10.8(H) 1.5 - 6.6 10*3/uL 06/21/2025 8:59 PM EDT [facility] Lymphocytes Absolute 1.1 1.0 - 3.5 10*3/uL 06/21/2025 8:59 PM EDT [facility] Monocytes Absolute 0.7 0.0 - 0.9 10*3/uL 06/21/2025 8:59 PM EDT [facility] Eosinophils Absolute 0.1 0.0 - 0.4 10*3/uL 06/21/2025 8:59 PM EDT [facility] Basophils Absolute 0.0 0.0 - 0.2 10*3/uL 06/21/2025 8:59 PM EDT [facility] Differential Type AUTOMATED DIFFERENTIAL 06/21/2025 8:59 PM EDT [facility] Blood Venous blood / Unknown Venipuncture / Unknown 06/21/2025 8:50 PM EDT 06/21/2025 8:52 PM EDT us Jim Mora DO LAB BLOOD ORDERABLES Fi nal Result Performing Organization Address City/[facility]/ZIP Co de Phone Number [address] [place] [address], [place] * C-reactive protein (06/21/2025 8:50 PM EDT) C REACTIVE PROTEIN <0.5 <=0.7 mg/dL 06/21/2025 9:16 PM EDT [facility] Blood Venous blood / Unknown Venipuncture / Unknown 06/21/2025 8:50 PM EDT 06/21/2025 8:52 PM EDT us Jim Mora DO LAB BLOOD ORDERABLES Fi nal Result [address] [place] [address], [place] * Magnesium (06/21/2025 8:50 PM EDT) MAGNESIUM 2.1 1.8 - 2.6 mg/dL 06/21/2025 9:16 PM EDT [facility] Blood Venous blood / Unknown Venipuncture / Unknown 06/21/2025 8:50 PM EDT 06/21/2025 8:52 PM EDT us Jim Mora DO LAB BLOOD ORDERABLES Fi nal Result [facility] [address] [place] [address], * (ABNORMAL) Comprehensive metabolic panel (06/21/2025 8:50 PM EDT) SODIUM 140 134 - 146 mmol/L 06/21/2025 9:16 PM EDT [facility] POTASSIUM 3.3(L) 3.5 - 5.0 mmol/L 06/21/2025 9:16 PM EDT [facility] CHLORIDE 105 98 - 109 mmol/L 06/21/2025 9:16 PM EDT [facility] CARBON DIOXIDE 25 22 - 32 mmol/L 06/21/2025 9:16 PM EDT [facility] ANION GAP 10 5 - 15 mmol/L 06/21/2025 9:16 PM EDT [facility] BLOOD UREA NITROGEN 30(H) 5 - 27 mg/dL 06/21/2025 9:16 PM EDT [facility] CREATININE 1.29(H) 0.70 - 1.20 mg/dL 06/21/2025 9:16 PM EDT [facility] Comment:METHOD TRACEABLE TO IDMS STANDARD GLUCOSE 118(H) 65 - 99 mg/dL 06/21/2025 9:16 PM EDT [facility] CALCIUM 8.7 8.5 - 10.5 mg/dL 06/21/2025 9:16 PM EDT [facility] TOTAL PROTEIN 7.5 6.0 - 8.0 g/dL 06/21/2025 9:16 PM EDT [facility] ALBUMIN 3.9 3.2 - 5.3 g/dL 06/21/2025 9:16 PM EDT [facility] ALKALINE PHOSPHATASE 79 39 - 130 U/L 06/21/2025 9:16 PM EDT [facility] AST 27 <=41 U/L 06/21/2025 9:16 PM EDT [facility] ALT 23 <=40 U/L 06/21/2025 9:16 PM EDT [facility] BILIRUBIN,TOTAL 1.1 0.3 - 1.2 mg/dL 06/21/2025 9:16 PM EDT [facility] EGFR Non-Race Dependent 59(L) >=60 ml/min/1.7 3sq.m 06/21/2025 9:16 PM EDT [facility] Comment: eGFR not reported due to non-numeric value for Creatinine. Reported eGFR is based on the CKD-EPI 2020 equation that does not use a race coefficient. Blood Venous blood / Unknown Venipuncture / Unknown 06/21/2025 8:50 PM EDT 06/21/2025 8:52 PM EDT Jim Mora DO LAB BLOOD ORDERABLES Fi nal Result [facility] [address] [place] [address], [place] * X-ray knee left 3 views (06/18/2025 [...] Leann Painter MD on 06/18/2025 1:19 PM us Brayan Michaud MD IMG DIAGNOSTIC IMAGING ORDERA BLES Final Result * Prostatic specific antigen, diagnostic (06/14/2025 11:35 AM EDT) PROSTATIC SPEC ANT 3.96 0.00 - 4.00 ng/mL 06/14/2025 6:29 PM EDT [facility] Comment: The method used for this test is [employer] DXI chemiluminescent immunoassay. Values obtained by different assay methods cannot be used interchangeably. Blood Venous blood / Unknown Venipuncture / Unknown 06/14/2025 11:35 AM EDT 06/14/2025 11:37 AM EDT Jim Hubbard MD LAB BLOOD ORDERABLES Final R esult [facility] [address] [place] [address], [place] [phone] from Last 3 Months Insurance [employer] MED[employer]ARE Care Teams Ap Processor Relationship Specialty Start Date End Date Brayan Michaud MD [facility], [address] [place] [address] PCP - General Pediatrics 06/13/17
--- OUTSIDE RECORDS SUMMARY | 2025-06-22 13:23 | XMS_ITS | Encounter Summary ---
Author Organization [facility] Sys tem Address [id number] [address] [place] [address] Care Team Providers Care Padding Machine Operator Name Role Phone Brayan Michaud MD Primary Care Provider [phone] Reason for Visit * Reason Comments Med Refill Encounter Details Date Type Department Care Team (Late st Contact Info) Description 09/08/2021 Refill [facility] [address] [place] [address] Brayan Michaud MD [address] [place] [address], [address] [place], [place] [id number] Social History Tobacco Use Types Packs/Day Years Used Date Smoking Tobacco: Never Smokeless Tobacco: Never Alcohol Use Standard Drinks/Week Comments Yes 0 (1 standard drink = 0.6 oz pur e alcohol) Barely PHQ-2 Answer Date Recorded Total Score 0 10/21/2020 Childcare Answer Date Recorded Childcare Unknown 03/14/2019 Employment Answer Date Recorded Employment Unknown 03/14/2019 Purpose - Life Answer Date Recorded Purpose and direction in life Unknown Sex and Gender Information Value Date Recorded Sex Assigned at Not on file Legal Sex Male 11:45 AM EDT Gender Identity Not on file Sexual Orientation Not on file documented as of this encounter Miscellaneous Notes * Telephone Encounter - Ofelia Whipple CMA - 09/08/2021 3:13 PM EST This patient got 90 days on 12-04-20 with 3 refills, he will not be out until 12/2021 documented in this encounter Plan of Treatment Upcoming Encounters Date Type Department Care Team (Late st Contact Info) Description 11/04/2025 1:30 PM EST Office Visit [facility] [address] [place] [address] [address] [place] [phone] Brayan Michaud MD [address] [place] [address], [address] [place], [place] [phone] 12/23/2025 2:45 PM EDT Office Visit [facility] [address] [place] [address] [place] [address] [place] [address] Jim Hubbard MD [address] [place] [id number] documented as of this encounter Visit Diagnoses Not on filedocumented in this encounter Additional Health Concerns Assessment Noted Time PHQ-9 Depression Total Score: 0 10/21/19 21 8:57 AM EST documented as of this encounter Care Teams Padding Machine Operator Relationship Specialty Start Date End Date Brayan Michaud MD [address] [place] [address], [address] [place], [place] [phone] PCP - General Pediatrics 06/13/17 documented as of this encounter
--- NOTE | 2025-06-22 13:41 | ECG_ITS ---
[facility] Test Date: 2025-06-22 Pat Name: HIGINIO TREVIZO Department: Room: Gender: Male Barrel Dedenting Machine Operator: : 1950 Requested By: [id number] Order Number: [id number] Reading MD: KAYLEEN RASMUSSEN M.D. Measurements Intervals [place] Rate: 75 P: -23304 [place]: -13802 QRS: 43 QRSD: 70 T: 97 QT: 394 QTc: 423 Interpretive Statements 69606 Atrial fibrillation with aberrant conduction, or ventricular premature complexes [address] depression, probably digitalis effect 8100 Low QRS voltage 9150 abnormal ECG No previous ECG available for comparison Electronically Signed On 06-23-2025 13:52:32 EDT by KAYLEEN RASMUSSEN M.D.
--- NOTE | 2025-06-22 13:41 | CT_ITS ---
The [address] [address] Patient Name: HIGINIO TREVIZO MRN: [id number] date: 1950 Sex: M Assigned Patient Location: ER Current Patient Location: ER Accession/Order Number: [id number] Exam Date: 06/22/2025 14:45 Report Date: 06/22/2025 15:15 At the request of: SALVATORE MURRAY MD Procedure: CT head/brain wo con CT BRAIN WITHOUT CONTRAST: CLINICAL HISTORY: fall COMPARISON: None TECHNIQUE: Contiguous axial unenhanced images were obtained through the brain. This CT exam was performed using one or more following dose reduction techniques: Automated exposure control, adjustment of the mA and/or kV according to patient size, or use of iterative reconstruction technique. FINDINGS: There is no evidence of midline shift, intra or extra-axial fluid collection, hemorrhage or CT evidence of acute large vascular distribution stroke. Mild scattered hypoattenuation suggestive chronic small vessel ischemic disease. Intracranial vascular calculations. Cataract surgery. Mild paranasal sinus mucosal thickening. Mastoids are clear. No calvarial fracture CT/CT head/brain wo con IMPRESSION: NO ACUTE INTRACRANIAL ABNORMALITY. MILD CHRONIC MICROVASCULAR CHANGES. Impression dictated by: Jesus Amor M.D. 06/22/2025 3:15 PM Dictation Location: [place] [address] Electronically authenticated by: [id number] Y Date: 06/22/2025 15:15
--- NOTE | 2025-06-22 13:41 | XR_ITS ---
The [address] [address] Patient Name: HIGINIO TREVIZO MRN: [id number] date: 1950 Sex: M Assigned Patient Location: ER Current Patient Location: ER Accession/Order Number: [id number] Exam Date: 06/22/2025 14:45 Report Date: 06/22/2025 15:13 At the request of: SALVATORE MURRAY MD Procedure: XR chest 1V PA CHEST: CLINICAL HISTORY: fall COMPARISON: None Findings: Low lung volumes. Unremarkable cardiomediastinal. Lungs clear. No effusion or pneumothorax. XR/XR chest 1V IMPRESSION: NEGATIVE ACUTE PLEURAL-PARENCHYMAL DISEASE. Impression dictated by: Jesus Amor M.D. 06/22/2025 3:13 PM Dictation Location: [place] [address] Electronically authenticated by: [id number] Y Date: 06/22/2025 15:13
--- NOTE | 2025-06-22 13:43 | ED.GENADUL1 ---
HPI HPI - General Adult General Chief complaint: Fall Stated complaint: FALL Time Seen by Provider: 06/22/25 13:35 Source: patient Mode of arrival: ambulance Limitations: no limitations and altered mental status History of Present Illness HPI narrative: 75-year-old male presented to the emergency department for generalized weakness. The patient gives some history but the family, his and daughter, give the rest of the history. He had apparently slid off the toilet last night in his home and was weak. He laid there for about 30 minutes and went to another hospital's emergency department. He was worked up there with radiographic studies and was discharged home. When he got home he was able to walk but then shortly afterwards he became very weak and he ended up sleeping on the bedroom floor with some blankets and his CPAP machine on. When he woke up today he was quite weak and his called the paramedics who transported him here. He does not complain of any specific pain but does complain of generalized weakness. Related Data Home Medications ?Medication ?Instructions ?Recorded ?Confirmed amlodipine 10 mg tablet 10 mg PO DAILY 06/22/25 06/22/25 naproxen 500 mg tablet 500 mg PO Q12H PRN pain 06/22/25 06/22/25 Allergies Allergy/AdvReac Type Severity Reaction Status Date / Time No Known Drug Allergies Allergy Verified 06/22/25 13:31 Review of Systems ROS Narrative A ten point review of systems is negative except as noted above. Exam Narrative Exam Narrative: Nurses note and vital signs reviewed and patient is not hypoxic. General: The patient appears in no acute distress Skin: Warm, dry, no pallor noted. There is no rash noted. Head: Normocephalic, atraumatic Eye: Normal conjunctiva, no drainage Ears, Nose, Mouth, and Throat: oral mucosa is minimally dry. Nares patent. Cardiovascular: Irregularly irregular Respiratory: Patient is in no distress, no accessory muscle use, lungs are clear to auscultation, no wheezing, rales or rhonchi Back: non-tender, no CVA tenderness bilaterally to percussion. GI: Normal bowel sounds, no tenderness to palpation, no masses appreciated. No rebound, guarding, or rigidity noted. Musculoskeletal: The patient has no evidence of calf tenderness, no pitting edema, symmetrical pulses noted bilaterally Neurological: A&O x4, normal speech Psychiatric: Cooperative Constitutional Vital Signs, click to edit/add: Last Vital Signs Temp 98.9 F 06/22/25 13:31 Pulse 66 06/22/25 15:30 Resp 30 H 06/22/25 15:30 BP 155/83 H 06/22/25 15:29 Pulse Ox 96 06/22/25 15:30 O2 Del Method Room Air 06/22/25 13:31 Course Vital Signs Vital signs: Vital Signs Pulse Rate 86 06/22/25 13:24 Respiratory Rate 31 H 06/22/25 13:24 Temperature 98.9 F 06/22/25 13:31 Pulse Rate 66 06/22/25 15:30 Respiratory Rate 30 H 06/22/25 15:30 Blood Pressure 155/83 H 06/22/25 15:29 Pulse Oximetry 96 06/22/25 15:30 Oxygen Delivery Method Room Air 06/22/25 13:31 Medical Decision Making MDM Narrative Medical decision making narrative: CAT scan of brain and chest x-ray are negative. WBC mildly elevated at 14. BUN is elevated at 46 and the creatinine is not significantly elevated. The myoglobin and CPK are elevated and he was given IV fluids. No evidence of UTI and blood cultures were obtained. He will be admitted. EKG also shows atrial fibrillation. I have no previous EKG for comparison and no EKG was performed last night at other hospital. Family reports that he has no history of A-fib. This appears to be new onset atrial fibrillation. Case discussed with the patient's and daughter as well as the patient and he is being admitted. Findings were discussed with Dr. Duron as well. Differential Diagnosis Differential Diagnosis: Intracranial hemorrhage, pneumonia, UTI, dehydration, anemia Lab Data Lab results reviewed: Yes I reviewed the patient's lab results Labs: Lab Results 06/22/25 06/22/25 Range/Units 13:31 14:09 WBC 14.4 H (4.0-11.0) 10^3/uL RBC 4.44 L (4.70-6.10) 10^6/uL Hgb 13.4 L (14.0-18.0) g/dL Hct 40.4 L (42.0-54.0) % MCV 91.0 (80.0-94.0) fL MCH 30.2 (25.9-34.0) pg MCHC 33.2 (29.9-35.2) g/dL RDW 13.9 (11.0-15.0) % Plt Count 214 (150-450) 10^3/uL MPV 11.4 (9.5-13.5) fL Neut % (Auto) 85.7 H (43.0-75.0) % Lymph % (Auto) 7.3 L (20.5-60.0) % [place] % (Auto) 6.5 (1.7-12.0) % Eos % (Auto) 0.1 L (0.9-7.0) % Baso % (Auto) 0.1 L (0.2-2.0) % Neut # (Auto) 12.4 H (1.4-6.5) 10^3/uL Lymph # (Auto) 1.1 L (1.2-3.8) 10^3/uL [place] # (Auto) 0.9 H (0.3-0.8) 10^3/uL Eos # (Auto) 0.0 (0.0-0.7) 10^3/uL Baso # (Auto) 0.0 (0.0-0.1) 10^3/uL Abs Immat Gran (auto) 0.04 H (0.00-0.03) 10^3/uL Imm/Tot Granulo (auto) 0.3 (0.0-0.5) % Sodium 147 H (136-145) mmol/L Potassium 4.1 (3.5-5.1) mmol/L Chloride 110 H (98-107) mmol/L Carbon Dioxide 26.2 (21.0-32.0) mmol/L Anion Gap 14.9 BUN 46.0 H (7.0-18.0) mg/dL Creatinine 1.21 (0.70-1.30) mg/dL Est GFR ( Amer) >60 (>=60 mL/min/1.73m^2) Est GFR (Non-Af Amer) 59 L (>=60 mL/min/1.73m^2) BUN/Creatinine Ratio 38.0 Glucose 105 (74-106) mg/dL Lactate 2.0 (0.4-2.0) mmol/L Calcium 8.4 L (8.5-10.1) mg/dL Total Creatine Kinase 502 H* (39-308) U/L Myoglobin 885 H* (16-96) ng/mL Troponin I High Sens 24.1 (4.0-76.1) pg/mL Urine Color Lt. yellow (YELLOW) Urine Clarity Clear (CLEAR) Urine pH 6.5 (5.0-9.0) Ur Specific [place] 1.015 (1.005-1.025) Urine Protein Trace (NEG/TRACE) mg/dL Urine Glucose (UA) Negative (NEGATIVE) mg/dL Urine Ketones Trace A (NEGATIVE) mg/dL Urine Occult Blood Trace-i (NEGATIVE) Urine Nitrite Negative (NEGATIVE) Urine Bilirubin Negative (NEGATIVE) Urine Urobilinogen 0.2 (0.2-1.0) EU/dL Ur Leukocyte Esterase Negative (NEGATIVE) Urine RBC 0-2 (0-2) #/HPF Urine WBC 0-2 A (NONE SEEN) #/HPF Ur Squamous Epith Cells Rare (NONE/RARE) #/LPF Urine Crystals Seen A (None Seen) #/HPF Calcium Oxalate Crystal Rare Urine Bacteria Trace A (NONE SEEN) #/HPF Urine Casts None seen (NONE SEEN) #/LPF Urine Mucus None seen (NONE SEEN) Ur Culture Indicated? No Imaging Data Chest x-ray: Radiologist's impression: ITS Impressions Chest X-Ray 06/22/25 13:41 IMPRESSION: NEGATIVE ACUTE PLEURAL-PARENCHYMAL DISEASE. Impression dictated by: Jesus Amor M.D. 06/22/2025 3:13 PM Dictation Location: [employer] Electronically authenticated by: [id number] Y Date: 06/22/2025 15:[address] 06/22/25 13:41 IMPRESSION: NO ACUTE INTRACRANIAL ABNORMALITY. MILD CHRONIC MICROVASCULAR CHANGES. Impression dictated by: Jesus Amor M.D. 06/22/2025 3:15 PM Dictation Location: [facility] Electronically authenticated by: [id number] Y Date: 06/22/2025 15:15 ECG Data Attestation: I personally reviewed and interpreted this ECG as follows: (EKG on my interpretation shows atrial fibrillation. No previous available for comparison) Discharge Plan Discharge Chief Complaint: Fall Clinical Impression: Rhabdomyolysis, Fall, Generalized weakness Patient Disposition: Admitted As Inpatient Time of Disposition Decision: 15:34 Condition: Fair
[2025-06-22 14:28] LABS: Hematocrit 40.4 % (42.0-54.0); Hemoglobin 13.4 g/dL (14.0-18.0); Immature Granulocytes Abs Auto 0.04 10^3/uL (0.00-0.03); Immature Granulocytes Pct Auto 0.3 % (0.0-0.5); Lymphocytes Absolute Auto 1.1 10^3/uL (1.2-3.8); Mean Corpuscular HGB Conc 33.2 g/dL (29.9-35.2); Mean Corpuscular Hemoglobin 30.2 pg (25.9-34.0); Mean Corpuscular Volume 91.0 fL (80.0-94.0); Platelet Count 214 10^3/uL (150-450); Red Blood Count 4.44 10^6/uL (4.70-6.10); White Blood Count 14.4 10^3/uL (4.0-11.0)
[2025-06-22 14:40] LABS: Glucose Urine UA NEGATIVE (NEGATIVE)
[2025-06-22 14:45] LABS: Anion Gap 14.9; Blood Urea Nitrogen 46.0 mg/dL (7.0-18.0); Calcium 8.4 mg/dL (8.5-10.1); Carbon Dioxide 26.2 mmol/L (21.0-32.0); Chloride 110 mmol/L (98-107); Estimated GFR (African America >60 (>=60 mL/min/1.73m^2); Estimated GFR (Non-African Ame 59 (>=60 mL/min/1.73m^2); Glucose 105 mg/dL (74-106); Potassium 4.1 mmol/L (3.5-5.1); Sodium 147 mmol/L (136-145)
[2025-06-22 14:50] LABS: Lactate/Lactic Acid 2.0 mmol/L (0.4-2.0)
[2025-06-22 14:52] LABS: Cast Seen? NONE SEEN #/LPF (NONE SEEN); Crystals Seen? Seen #/HPF (None Seen); Urine Culture Indicated NO
[2025-06-22 15:03] LABS: Creatine Kinase 502 U/L (39-308)
[2025-06-22] MEDS: 0.9 % SODIUM CHLORIDE 1,000 ML 200 ML IV (15:23)
[2025-06-22] MEDS: SODIUM CHLORIDE 0.45 % 1,000 ML 70 ML IV (19:00)
[2025-06-22] MEDS: AMLODIPINE BESYLATE 5 MG TABLET 10 MG PO (19:00)
[2025-06-22] MEDS: SENNOSIDES/DOCUSATE SODIUM 1 TAB TABLET PO (19:00)
[2025-06-22] MEDS: ACETAMINOPHEN 325 MG TABLET 650 MG PO (19:03)
[2025-06-23] VITALS (21 sets, daily range): BP systolic 140–171; BP diastolic 78–93; PULSE 75–98; TEMP 36.7–37.3; O2SAT 93–95
[2025-06-23 06:41] LABS: Hematocrit 39.4 % (42.0-54.0); Hemoglobin 13.1 g/dL (14.0-18.0); Immature Granulocytes Abs Auto 0.05 10^3/uL (0.00-0.03); Immature Granulocytes Pct Auto 0.4 % (0.0-0.5); Lymphocytes Absolute Auto 1.6 10^3/uL (1.2-3.8); Mean Corpuscular HGB Conc 33.2 g/dL (29.9-35.2); Mean Corpuscular Hemoglobin 30.7 pg (25.9-34.0); Mean Corpuscular Volume 92.3 fL (80.0-94.0); Platelet Count 212 10^3/uL (150-450); Red Blood Count 4.27 10^6/uL (4.70-6.10); White Blood Count 13.3 10^3/uL (4.0-11.0)
[2025-06-23 07:04] LABS: Alanine Aminotransferase 24 U/L (16-63); Albumin Globulin Ratio 0.9; Albumin Level 3.0 g/dL (3.4-5.0); Alkaline Phosphatase 60 U/L (46-116); Aspartate Amino Transferase 37 U/L (15-37); Blood Urea Nitrogen 52.0 mg/dL (7.0-18.0); Calcium 8.4 mg/dL (8.5-10.1); Carbon Dioxide 23.5 mmol/L (21.0-32.0); Estimated GFR (African America >60 (>=60 mL/min/1.73m^2); Estimated GFR (Non-African Ame >60 (>=60 mL/min/1.73m^2); Globulin 3.5 g/dL; Glucose 116 mg/dL (74-106); Total Protein 6.5 g/dL (6.4-8.2)
[2025-06-23 07:20] LABS: Anion Gap 16.1; Chloride 109 mmol/L (98-107); Potassium 3.6 mmol/L (3.5-5.1); Sodium 145 mmol/L (136-145)
[2025-06-23 07:27] LABS: Creatine Kinase 630 U/L (39-308)
[2025-06-23] MEDS: SENNOSIDES/DOCUSATE SODIUM 1 TAB TABLET PO (08:40)
[2025-06-23] MEDS: AMLODIPINE BESYLATE 5 MG TABLET 10 MG PO (08:40)
[2025-06-23] MEDS: RIVAROXABAN 10 MG TABLET 20 MG PO (08:40)
--- NOTE | 2025-06-23 10:35 | P.HP_ITS ---
HPI H&P: HPI History of Present Illness Chief complaint: RHABDOMYDYSIS Narrative: Mr. Gleason is a 75-year-old gentleman who came to the emergency room yesterday after he could not get up from the floor. Apparently patient fell down a few days ago. He was taken to the [place] emergency room for evaluation. Trauma evaluation was completed and reported to be negative according to his . Patient was sent home. Patient was unable to climb up and sleep in his bed therefore set up mattress on the floor to sleep at. Patient laid down on the floor but later on could not stand up and ambulate therefore EMS was called back and the patient was brought to [facility]. Patient denies any focal weakness or numbness. No headaches. No chest pain. No abdominal pain. No fever or chills. Patient was found to have atrial fibrillation. Never been told before that he has fibrillation. No prior history of heart disease Opioid HPI Opioid Management Most Recent Pain and Opioid Data: Last Pain Scale 0 Today, 09:36 Last Pain Assessment 06/22/25, 17:00 Last MAR Pain Assessment 06/22/25, 19:03 Last ORT Total Score 1 06/22/25, 17:00 Last ORT Risk Category Low Risk 06/22/25, 17:00 Review of Systems ROS Status of ROS 10 or more systems reviewed and unremark able except as noted in history and below [facility] Medical History (Updated 06/23/25 @ 10:39 by Vel Duron MD) Carpal tunnel syndrome on both sides ?G56.03 - Carpal tunnel syndrome, bilateral upper limbs (ICD-10) Kidney stone ?N20.0 - Calculus of kidney (ICD-10) Sleep apnea ?G47.30 - Sleep apnea, unspecified (ICD-10) BPH (benign prostatic hyperplasia) ?N40.0 - Benign prostatic hyperplasia without lower urinary tract symptoms (ICD-10) Ureteral stone ?N20.1 - Calculus of ureter (ICD-10) Surgical History (Updated 06/22/25 @ 17:38 by Kaya Corado) H/O left knee surgery ?Z98.890 - Other specified postprocedural states (ICD-10) History of lithotripsy ?Z98.890 - Other specified postprocedural states (ICD-10) Family History (Updated 06/22/25 @ 17:35 by Kaya Corado) Mother Family history of colon cancer Father Family history of throat cancer Social History (Updated 06/22/25 @ 17:40 by Kaya Corado) Within the past year, how often did you have a drink containing alcohol: 2-4 times a month Within the past year, how many standard drinks containing alcohol did you have on a typical day: 1 or 2 Within the past year, how often did you have six or more drinks on one occasion: never Total score: 0 Score interpretation: A score less than 4 is consistent with normal alcohol consumption. Smoking status: Never smoker Second hand tobacco smoke exposure: No Non-prescribed substance use: cannabis (any form) Previous occupational history: [employer] Known occupational exposures/hazards: No Highest level of school completed/degree received: high school graduate Do you want help with school or training: No Are you now , , , , never or living with a partner: In a typical week, how many times do you talk on the telephone with family, friends, or neighbors: 3 or more times per week How often do you get together with friends or relatives: 3 or more times per week How often do you attend restorationist or orthodoxy services: never Do you belong to any clubs or organizations such as restorationist groups unions, fraternal or athletic groups, or school groups: no Total score: 2 Score interpretation: A score of greater than or equal to 2 indicates the lowest level of social isolation. Little interest or pleasure in doing things: not at all Feeling down, depressed, or hopeless: not at all Feel stressed/tense/nervous/anxious/difficulty sleeping: not at all Due to disability, difficulty making decisions: No Do you think of yourself as: straight/heterosexual Gender Identity: male Meds Home Medications and Allergies Home Medications ?Medication ?Instructions ?Recorded ?Confirmed ?Type amlodipine 10 mg tablet 10 mg PO DAILY 06/22/2506/04 History naproxen 500 mg tablet 500 mg PO Q12H PRN pain 06/0406/22/25 History Allergies Allergy/AdvReac Type Severity Reaction Status Date / Time No Known Drug Allergies Allergy Verified 06/22/25 13:31 Exam Narrative Exam Narrative: [pt is awake and alert. oriented to place, time and person, morbidly obese Erythema and moist fungal rash involving the groin fold HEENT: [place] conjunctiva and NL buccal mucosa Neck: Supple, no tenderness Endocrine: No Thyromegaly. Vascular: No JVD or carotid bruit. Lymphatic: No cervical lymphadenopathy. Chest: CTA no DTP. Heart RRR, no extra sound or murmur. Abd: Soft, no tenderness, no rebound and no rigidity. Increase abd girth therefore clinically I could not exclude the possibility of intra abd mass or organomegaly. LE: No cyanosis or clubbing, no varices or edema. Neuro: A A O. Nl speech, comprehension and attention. Patient is able to provide information. Patient has memory trouble therefore he could not provide details. His was able to provide information. Patient is able to focus. Patient is able to hold conversation. Symmetrical motor and tone. Patient is able to lift up his legs against gravity but not resistance. []] Constitutional Vital Signs, click to edit/add: Last Vital Signs Temp 98.0 F 06/23/25 07:44 Pulse 98 H 06/23/25 09:58 Resp 18 06/23/25 07:44 BP 163/84 H 06/23/25 07:44 Pulse Ox 95 06/23/25 07:44 O2 Del Method Room Air 06/23/25 07:44 O2 Flow Rate 2 06/23/25 04:00 Results Labs Labs: Short CBC 06/22/25 06/23/25 Range/Units 14:09 05:51 WBC 14.4 H 13.3 H (4.0-11.0) 10^3/uL Hgb 13.4 L 13.1 L (14.0-18.0) g/dL Hct 40.4 L 39.4 L (42.0-54.0) % Plt Count 214 212 (150-450) 10^3/uL BMP 06/22/25 06/23/25 14:09 05:51 Sodium 147 H 145 Potassium 4.1 3.6 Chloride 110 H 109 H Carbon Dioxide 26.2 23.5 BUN 46.0 H 52.0 H Creatinine 1.21 1.04 Glucose 105 116 H Calcium 8.4 L 8.4 L Cardiac Enzymes 06/22/25 06/23/25 Range/Units 14:09 05:51 Total Creatine Kinase 502 H* 630 H* (39-308) U/L Liver Function 06/23/25 Range/Units 05:51 Total Bilirubin 1.3 H (0.2-1.0) mg/dL AST 37 (15-37) U/L ALT 24 (16-63) U/L Alkaline Phosphatase 60 (46-116) U/L Albumin 3.0 L (3.4-5.0) g/dL Urine 06/22/25 Range/Units 13:31 Urine Color Lt. yellow (YELLOW) Urine Clarity Clear (CLEAR) Urine pH 6.5 (5.0-9.0) Ur Specific [place] 1.015 (1.005-1.025) Urine Protein Trace (NEG/TRACE) mg/dL Urine Glucose (UA) Negative (NEGATIVE) mg/dL Assessment and Plan Assessment and Plan (1) New onset a-fib: (2) Generalized weakness: (3) Fall: (4) Rhabdomyolysis: (5) Hypertension: (6) Obesity: Plan New onset A-fib. Rate is controlled. Rate is around 90 [id number] score is 2. Consideration for anticoagulation. I started the patient on Toprol-XL 25 mg daily. I started patient on Xarelto 10 mg daily. I also started patient on aspirin 81 mg daily Requested TSH rule out hypothyroidism. Requested echocardiogram to rule out cardiomyopathy or significant valvular disease. Troponin is negative. No chest pain or palpitation. No ST elevation or depression. I suspect that the patient has underlying CAD but no clinical evidence of ACS or acute plaque rupture. Patient would likely require to have ischemic evaluation electively. Rhabdomyolysis Patient had received IV fluid in the emergency room department. Mild CPK elevation. His blood pressure was elevated therefore I stopped IV fluid. Monitor CPK over the next few days Reinitiate fluid infusion if his CPK climbs above 1000 Hypertension Resume home amlodipine 10 mg daily. Discontinue home Naprosyn Add Toprol-XL 25 mg daily for better blood pressure control and heart rate control Functional impairment, symmetrical weakness. CT head is negative for acute intracranial process I started patient on Xarelto 20 mg daily for primary embolic stroke prevention and aspirin 81 mg daily for primary ischemic stroke prevention. Requested lipid profile. PT OT eval and treatment. Patient may need short-term skilled care Fungal skin infection in the fold Nystatin cream Obesity, patient weighs about 300 pounds. BMI is 43 Diet, exercise and lifestyle modification will be needed. Anemia, no evidence of acute blood loss. Patient will likely require to have anemia workup to be done in the outpatient setting to be handled by PCP in collaboration with other needed outpatient providers. This may include but not limited to EGD, colonoscopy, referral to see hematology and other needed age-appropriate cancer screening. Chronic medical conditions not listed above, incidental findings seen on labs and imaging. These would need to be addressed. Could be addressed when time and condition are appropriate. Could be addressed in the outpatient setting by PCP collaboration with other needed outpatient providers. Patient status is dynamic and evolutionary therefore the aforementioned assessment and plan may or may not be complete or inclusive. The patient will likely require to have additional workup, investigation and therapeutic intervention that will be determined based on the clinical progression and follow-up test result. I have discussed this case with his at the bedside. I provided her information about his disease, prognosis, expectation and trajectory. I answered all of her questions Urinary Catheter Management Urinary Catheter Management Urethral: Cath placed during this visit: yes Urethral indwelling: No Insertion date: 06/22/25 Insertion time: 14:03
[2025-06-23] MEDS: NYSTATIN 100,000 UNITS/GRAM CREAM 15 GM TUBE 1 APPLIC TOPICAL ×2 (11:12→21:15)
[2025-06-23] MEDS: POTASSIUM CHLORIDE 10 MEQ ER TABLET 20 MEQ PO ×2 (11:12→21:14)
[2025-06-23] MEDS: METOPROLOL SUCCINATE 25 MG TAB.ER.24H PO (11:12)
[2025-06-23] MEDS: ASPIRIN 81 MG TABLET.DR PO (11:12)
--- NOTE | 2025-06-23 12:02 | ECG_ITS ---
The [facility] Test Date: 2025-06-23 Pat Name: HIGINIO TREVIZO Department: Room: Gender: Male Acid Remover: : 1950 Requested By: [id number] Order Number: [id number] Reading MD: KAYLEEN RASMUSSEN M.D. Measurements Intervals [place] Rate: 77 P: AR: QRS: -2 QRSD: 72 T: 37 QT: 398 QTc: 453 Interpretive Statements ATRIAL FIBRILLATION WITH ABERRANT CONDUCTION OR VENTRICULAR PREMATURE COMPLEXES LOW QRS VOLTAGE IN PRECORDIAL LEADS [QRS DEFLECTION < 1.0 mV IN CHEST LEADS] NONSPECIFIC T-WAVE ABNORMALITY ABNORMAL RHYTHM ECG Compared to ECG 06/22/2025 13:33:04 No significant changes Electronically Signed On 06-23-2025 14:01:47 EDT by KAYLEEN RASMUSSEN M.D.
[2025-06-23] MEDS: ACETAMINOPHEN 325 MG TABLET 650 MG PO (15:22)
[2025-06-24] VITALS (15 sets, daily range): BP systolic 102–173; BP diastolic 63–98; PULSE 59–93; TEMP 36.4–36.9; O2SAT 90–96; BMI 10.0
[2025-06-24 05:36] LABS: Hematocrit 37.9 % (42.0-54.0); Hemoglobin 12.7 g/dL (14.0-18.0); Mean Corpuscular HGB Conc 33.5 g/dL (29.9-35.2); Mean Corpuscular Hemoglobin 30.5 pg (25.9-34.0); Mean Corpuscular Volume 90.9 fL (80.0-94.0); Platelet Count 224 10^3/uL (150-450); Red Blood Count 4.17 10^6/uL (4.70-6.10); White Blood Count 16.7 10^3/uL (4.0-11.0)
[2025-06-24 06:23] LABS: Anion Gap 15.8; Blood Urea Nitrogen 45.0 mg/dL (7.0-18.0); Calcium 8.6 mg/dL (8.5-10.1); Carbon Dioxide 23.9 mmol/L (21.0-32.0); Chloride 109 mmol/L (98-107); Cholesterol 125 mg/dL (<=200); Creatine Kinase 310 U/L (39-308); Estimated GFR (African America >60 (>=60 mL/min/1.73m^2); Estimated GFR (Non-African Ame >60 (>=60 mL/min/1.73m^2); Glucose 135 mg/dL (74-106); HDL Cholesterol 31 mg/dL (40-60); Potassium 3.7 mmol/L (3.5-5.1); Sodium 145 mmol/L (136-145); Triglycerides 114 mg/dL (<=150); VLDL CHOLESTEROL 22.8 mg/dL
[2025-06-24 06:24] LABS: Thyroid Stimulating Hormone 1.199 uIU/mL (0.358-3.740)
--- NOTE | 2025-06-24 09:29 | CM.NOTE ---
Rounds made wt Dr. Duron, no discharge today. PT and OT will evaluate for discharge planning.
[2025-06-24] MEDS: METOPROLOL SUCCINATE 25 MG TAB.ER.24H PO (09:45)
[2025-06-24] MEDS: RIVAROXABAN 10 MG TABLET 20 MG PO (09:45)
[2025-06-24] MEDS: AMLODIPINE BESYLATE 5 MG TABLET 10 MG PO (09:45)
[2025-06-24] MEDS: SENNOSIDES/DOCUSATE SODIUM 1 TAB TABLET PO (09:45)
[2025-06-24] MEDS: NYSTATIN 100,000 UNITS/GRAM CREAM 15 GM TUBE 1 APPLIC TOPICAL ×2 (09:46→20:41)
[2025-06-24] MEDS: ASPIRIN 81 MG TABLET.DR PO (09:46)
--- NOTE | 2025-06-24 10:14 | P.PN_ITS ---
Progress Note: Subjective Subjective Interval history: Patient did not sleep well last night. He did not use his CPAP machine. No chest pain. No abdominal pain. No nausea or vomiting Exam Narrative Exam Narrative: [pt is awake and alert. oriented to place, time and person, morbidly obese Erythema and moist fungal rash involving the groin fold HEENT: [place] conjunctiva and NL buccal mucosa Neck: Supple, no tenderness Endocrine: No Thyromegaly. Vascular: No JVD or carotid bruit. Lymphatic: No cervical lymphadenopathy. Chest: CTA no DTP. Heart RRR, no extra sound or murmur. Abd: Soft, no tenderness, no rebound and no rigidity. Increase abd girth therefore clinically I could not exclude the possibility of intra abd mass or organomegaly. LE: No cyanosis or clubbing, no varices or edema. Neuro: A A O. Nl speech, comprehension and attention. Patient is able to provide information. Patient has memory trouble therefore he could not provide details. His was able to provide information. Patient is able to focus. Patient is able to hold conversation. Symmetrical motor and tone. Patient is able to lift up his legs against gravity but not resistance. []] Constitutional Vital Signs, click to edit/add: Last Vital Signs Temp 98.5 F 06/24/25 07:27 Pulse 77 06/24/25 10:00 Resp 20 06/24/25 07:27 BP 137/83 06/24/25 07:27 Pulse Ox 96 06/24/25 07:27 O2 Del Method Nasal Cannula 06/24/25 07:27 O2 Flow Rate 2 06/24/25 07:27 Progress Note: Objective Labs Labs: Short CBC 06/24/25 Range/Units 04:44 WBC 16.7 H (4.0-11.0) 10^3/uL Hgb 12.7 L (14.0-18.0) g/dL Hct 37.9 L (42.0-54.0) % Plt Count 224 (150-450) 10^3/uL BMP 06/24/25 04:46 Sodium 145 Potassium 3.7 Chloride 109 H Carbon Dioxide 23.9 BUN 45.0 H Creatinine 1.10 Glucose 135 H Calcium 8.6 Cardiac Enzymes 06/24/25 Range/Units 04:46 Total Creatine Kinase 310 H (39-308) U/L Progress Note: A&P Assessment and Plan (1) New onset a-fib: (2) Generalized weakness: (3) Fall: (4) Rhabdomyolysis: (5) Hypertension: (6) Obesity: Plan New onset A-fib. This is associated with intermittent short run of SVT and occasional bradycardia. I suspect that patient may have sick sinus syndrome Rate is controlled. Rate is around 90 [id number] score is 2. Consideration for anticoagulation. I started the patient on Toprol-XL 25 mg daily. I started patient on Xarelto 20 mg daily. I also started patient on aspirin 81 mg daily Requested TSH rule out hypothyroidism. TSH is normal. Requested echocardiogram to rule out cardiomyopathy or significant valvular disease. Pending Troponin is negative. No chest pain or palpitation. No ST elevation or depression. I suspect that the patient may have sick sinus syndrome. May need EP evaluation I suspect that the patient has underlying CAD but no clinical evidence of ACS or acute plaque rupture. Patient would likely require to have ischemic evaluation electively. Requested cardiac consultation Rhabdomyolysis Patient had received IV fluid in the emergency room department. Mild CPK elevation. His blood pressure was elevated therefore I stopped IV fluid. Monitor CPK over the next few days. CPK is trending down. Hypertension Resume home amlodipine 10 mg daily. Discontinue home Naprosyn Add Toprol-XL 25 mg daily for better blood pressure control and heart rate control Functional impairment, symmetrical weakness. CT head is negative for acute intracranial process. No focal deficit. Generalized weakness, symmetrical. I started patient on Xarelto 20 mg daily for primary embolic stroke prevention and aspirin 81 mg daily for primary ischemic stroke prevention. Requested lipid profile. PT OT eval and treatment. Patient may need short-term skilled care Fungal skin infection in the fold Nystatin cream Obstructive sleep apnea Patient is using his CPAP machine at home Obesity, patient weighs about 300 pounds. BMI is 43 Diet, exercise and lifestyle modification will be needed. Anemia, no evidence of acute blood loss. Patient will likely require to have anemia workup to be done in the outpatient setting to be handled by PCP in collaboration with other needed outpatient providers. This may include but not limited to EGD, colonoscopy, referral to see hematology and other needed age-appropriate cancer screening. Chronic medical conditions not listed above, incidental findings seen on labs and imaging. These would need to be addressed. Could be addressed when time and condition are appropriate. Could be addressed in the outpatient setting by PCP collaboration with other needed outpatient providers. Patient status is dynamic and evolutionary therefore the aforementioned assessment and plan may or may not be complete or inclusive. The patient will likely require to have additional workup, investigation and therapeutic intervention that will be determined based on the clinical progression and follow-up test result. Urinary Catheter Management Urinary Catheter Management Urethral: Cath placed during this visit: yes Urethral indwelling: No Insertion date: 06/22/25 Insertion time: 14:03
--- NOTE | 2025-06-24 10:50 | SWNOTE1 ---
Important Message from Medicare reviewed and discussed with patient's . Pt's verbalized understanding and signed the form. Original given to patient's and copy placed in patient?s chart.
--- NOTE | 2025-06-24 10:51 | SWNOTE1 ---
LEMUEL met with pt and pt's in room. Pt was sleeping in bed, pt's answered all questions. She voiced he was independent prior to not feeling well. She stated she thinks it is the A-Fib that is causing his weakness and they were not aware he had it. She stated they have a 2 story home and there are 13 stairs to go up and bedroom and bathroom are upstairs. SW spoke with her about the recommendation of rehab. Pt's in agreement and she stated he will need to go before he returns home. [facility] first choice [facility]. LEMUEL to send referral. LEMUEL did explain that pt is a precert and it could take a few days to get approval, she voiced understanding. Referral sent to [place]. Referral included face sheet, ED note, H&P, provider notes, case management report, nursing notes, diagnostic imaging, med list, and PT/OT notes.
--- NOTE | 2025-06-24 11:25 | MR_ITS ---
[address] [address] Patient Name: HIGINIO TREVIZO MRN: [id number] date: 1950 Sex: M Assigned Patient Location: [place] Current Patient Location: [place] Accession/Order Number: [id number] Exam Date: 06/24/2025 15:10 Report Date: 06/24/2025 16:29 At the request of: LONDON PANG MD Procedure: MR head/brain wo con EXAMINATION: MRI OF THE BRAIN WITHOUT CONTRAST CLINICAL HISTORY: Weakness r/o CVA, acute extremity weakness unable to ambulate COMPARISON: CT head 06/22/2025 TECHNIQUE: Multiecho, multiplanar imaging of the brain was performed without contrast FINDINGS: Evidence of left MONIK strokes involving the cortex left precentral gyrus and the left parasagittal parietal lobe. Additional focus of restricted diffusion superior margin of the above the body of corpus callosum Otherwise mild generalized involutional changes. Pzss-kh-ytsrxvtv periventricular and subcortical T2 prolongation suggestive of chronic small vessel ischemic disease. No shift of midline structure. Basal cisterns are patent. No abnormal GRE signal. Mild paranasal sinus mucosal thickening. IMPRESSION: Evidence of left-sided anterior cerebral artery artery distribution infarcts, acute subacute in age. No hemorrhagic transformation. Otherwise owte-oo-jvjsbggu chronic small vessel ischemic disease Impression dictated by: Jesus Amor M.D. 06/24/2025 4:29 PM Dictation Location: [place] [address] Electronically authenticated by: [id number] Y Date: 06/24/2025 16:29
--- NOTE | 2025-06-24 11:59 | SWNOTE1 ---
SW received an email from [facility] at [facility] and they have accepted and they will start precert.
--- NOTE | 2025-06-24 13:02 | MR_ITS ---
The [address] [address] Patient Name: HIGINIO TREVIZO MRN: [id number] date: 1950 Sex: M Assigned Patient Location: MS Current Patient Location: MS Accession/Order Number: [id number] Exam Date: 06/24/2025 15:10 Report Date: 06/24/2025 20:27 At the request of: LONDON PANG MD Procedure: MR lumbar spine wo con MRI of the lumbar spine performed without contrast INDICATION: Weakness after a fall, rule out spinal injury COMPARISON: None FINDINGS: Lumbar vertebral heights and alignment maintained. Incidental vertebral hemangioma L1 L3 and S1. No abnormal Marrow signal identified suggest acute compression fracture. Moderate severe disc space space narrowing L2-3. Conus medullaris terminates normally mid L1. Levocurvature noted. Right renal T2 hyperintensities suggestive cysts T12-L1: Left foraminal zone bulge. Facet arthropathy. Canal and right foramen are patent. Mild left foraminal narrowing. L1-2: Broad-based disc bulge with moderate facet arthropathy.. This results in mild to moderate central canal stenosis. Moderate right and alrx-ku-lvkxoyeq left neural foraminal narrowing. There is crowding both subarticular zones, greatest right.. L2-3: Circumferential disc bulge with endplate osteophytosis and spurring extending to both foraminal regions. This is superimposed facet arthropathy, moderate. This results in moderate severe central canal stenosis and subarticular recess narrowing predominantly right-sided. There is moderate severe right foraminal narrowing, correlate with possible right L2 and L3 radiculopathy. Moderate left foraminal narrowing L3-4: Circumferential disc bulge with facet arthropathy. Moderate central canal and right greater than left subarticular recess narrowing. Moderate to severe bilateral neural from narrowing. L4-5: Broad-based disc bulge with moderate to severe facet arthropathy. Bplo-un-ebwtlqkx right-sided and moderate left-sided neural from narrowing. Pybf-lv-lepxjnom central canal stenosis. L5-S1: Circumferential disc bulge with moderate to severe facet arthropathy. Severe right and moderate left-sided neural foraminal narrowing. There is moderate severe right subarticular recess narrowing crowding the right S1 nerve root., Correlate with right L5 and S1 radiculopathy. MR/MR lumbar spine wo con IMPRESSION: Multilevel degenerative changes greatest on the right L2-3 and L5-S1, correlate with possible right L2-L3 and L5-S1 radiculopathy. No evidence of acute compression fracture. Additional findings as detailed above. Impression dictated by: Jesus Amor M.D. 06/24/2025 8:27 PM Dictation Location: [place] [address] Electronically authenticated by: [id number] Y Date: 06/24/2025 20:27
--- NOTE | 2025-06-24 16:00 | CA_ITS ---
Patient Name: HIGINIO TREVIZO MR#: [id number] : 1950 Exam Date: 06/24/2025 Ordering Doctor: LONDON PANG CORRECTION Corrected on: 06/24/2025; ECHOCARDIOGRAM REPORT PROCEDURE: CA ECHO DOPPLER COMPLETE INDICATIONS: A fib, hypertension, sleep apnea COMPARISON: None. DESCRIPTION: COMPLETE ECHOCARDIOGRAM Real-time transthoracic echocardiography with 2D, M-mode, spectral and color flow Doppler performed. QUALITY: Technical quality was good. LEFT VENTRICLE: Normal chamber size. Proximal septal hypertrophy (sigmoid septum). Moderate concentric left ventricular hypertrophy. Normal systolic function. LV EF: Normal left ventricular ejection fraction, (>55%). DIASTOLIC: Not adequately assessed due to heart rhythm. ATRIAL SEPTUM: LEFT ATRIUM: Normal chamber size. RIGHT ATRIUM: Mild dilatation. RIGHT VENTRICLE: Mild dilatation. Normal systolic function. TRICUSPID VALVE: Normal mobility and thickness. No stenosis with mild regurgitation. Doppler studies reveal mildly (35-45) elevated right sided pressures. RVSP 38 mmHg MITRAL VALVE: Normal mobility and thickness. No evidence of mitral valve stenosis. There is no mitral annular calcification. Mild mitral regurgitation. AORTIC VALVE: Likely bicuspid aortic valve. Mildly calcified aortic valve. Mildly diminished mobility. No evidence of aortic valve stenosis. No aortic regurgitation. AORTIC ROOT: Normal diameter and appearance, measuring 3.6 cm. The ascending aorta is normal in size measuring 2.8 cm. PULMONIC VALVE: Normal thickness and mobility. No stenosis. No regurgitation. PERICARDIUM: No evidence of pericardial effusion. IVC: Not well visualized. PLEURA: CONCLUSION: 1. Moderate concentric left ventricular hypertrophy with normal systolic function. Estimated LVEF is 55%. 2. Mildly dilated right ventricle with normal systolic function. 3. Mild biatrial dilatation. 4. Likely bicuspid aortic valve with no regurgitation or stenosis. 5. Mild mitral and tricuspid regurgitation. 6. Mildly elevated right-sided pressures. 7. Normal diameter ascending aorta and aortic root. Adult Echocardiography Procedure Report Left Ventricle LVEDD (3.7 - 5.6 cm): 4.67 cm LVESD (2.2 - 4.0 cm): 3.38 cm LVIVS thickness (0.6 - 1.2 cm): 1.80 cm LVPW thickness (0.5 - 1.0 cm): 1.37 cm LVOT Max Gradient: 2.52 mm[Hg] LVOT Area (cm2): 0.79 m/s Peak Velocity (LVOT): 0.79 m/s LVOT Diameter 2.45 cm Left Ventricular Ejection Fraction: 55% Left Atrium LA Volume Index (2D A2C): 34.09 ml/m2 Left Atrium Systolic Dimension: 4.57 cm Mitral Valve MV E to A Ratio: 3.86 Mitral Valve A-Wave Peak Velocity: 0.24 m/s Mitral Valve E-Wave Peak Velocity: 0.93 m/s, 0.96 m/s Right Ventricle Aorta AO Root Diam: 3.65 cm Ascending Ao Diam: 2.84 cm Aortic Valve AoV Area (Peak Toan): 2.32 cm2, 2.32 cm2 Peak Velocity(Antegrade Flow): 1.60 m/s Peak Gradient(Antegrade Flow): 10.29 mm[Hg] Tricuspid Valve Peak Velocity (Regurgitant Flow): 2.33 m/s, 2.74 m/s Pulmonic Valve Peak Velocity: 1.29 m/s Peak Gradient: 5.92 mm[Hg], 7.40 mm[Hg] Right Atrium Right Atrium Systolic Pressure: 68.87 ml, 68.87 ml Dictated by: Giuliano Vincent M.D. on 06/24/2025 at 17:26 Approved by: Giuliano Vincent M.D. on 06/24/2025 at 17:31 Dictated by: Giuliano Vincent M.D. on 06/24/2025 at 18:14 Approved by: Giuliano Vincent M.D. on 06/24/2025 at 18:14
--- NOTE | 2025-06-24 16:48 | CT_ITS ---
[address] [address] Patient Name: HIGINIO TREVIZO MRN: [id number] date: 1950 Sex: M Assigned Patient Location: MS Current Patient Location: Accession/Order Number: [id number] Exam Date: 06/24/2025 17:14 Report Date: 06/24/2025 18:18 At the request of: LONDON PANG MD Procedure: CT angio neck CT angiogram head and neck performed with contrast INDICATION: Stroke COMPARISON: CT head 06/22/2025 and MRI brain 06/22/2025 TECHNIQUE: CT angiogram images were performed with coronal and sagittal reconstructions. Evaluation degree of ICA narrowing was performed utilizing NASCET criteria. This CT exam was performed using one or more following dose reduction techniques: Automated exposure control, adjustment of the mA and/or kV according to patient size, or use of iterative reconstruction technique. Heterogeneous thyroid gland with bilateral thyroid nodularity measuring up to 2.6 cm in size on the left previously further characterize with ultrasound when clinically feasible. Otherwise there is a 4 vessel configuration the arch with left vertebral artery artery arising from the arch. Mild plaque involving the great vessels. Carotid vessels are patent without significant stenosis by NASCET criteria. Mild plaque right bifurcation and mild to moderate calcific left bifurcation noted without hemodynamically significant stenosis or narrowing. Left dominant vertebral artery. Right vertebral artery is Vertebral arteries hypoplastic. Both vertebral arteries patent throughout the cervical course. Vertebral arteries, basilar artery. Basilar artery, basilar tip and basilar bifurcation patent. Posterior cerebral arteries are patent stents Intracranial ICAs are patent. Suspected fenestration M1/carotid terminus. Otherwise MCAs are patent. ACAs are patent. Dural venous sinuses are patent. CT/CT angio neck IMPRESSION: Negative for large vessel occlusion or hemodynamically significant stenosis. Impression dictated by: Jesus Amor M.D. 06/24/2025 6:18 PM Dictation Location: [place] [address] Electronically authenticated by: [id number] Y Date: 06/24/2025 18:18
--- NOTE | 2025-06-24 16:48 | CT_ITS ---
[address] [address] Patient Name: HIGINIO TREVIZO MRN: [id number] date: 1950 Sex: M Assigned Patient Location: MS Current Patient Location: Accession/Order Number: [id number] Exam Date: 06/24/2025 17:14 Report Date: 06/24/2025 18:18 At the request of: LONDON PANG MD Procedure: CT angio neck CT angiogram head and neck performed with contrast INDICATION: Stroke COMPARISON: CT head 06/22/2025 and MRI brain 06/22/2025 TECHNIQUE: CT angiogram images were performed with coronal and sagittal reconstructions. Evaluation degree of ICA narrowing was performed utilizing NASCET criteria. This CT exam was performed using one or more following dose reduction techniques: Automated exposure control, adjustment of the mA and/or kV according to patient size, or use of iterative reconstruction technique. Heterogeneous thyroid gland with bilateral thyroid nodularity measuring up to 2.6 cm in size on the left previously further characterize with ultrasound when clinically feasible. Otherwise there is a 4 vessel configuration the arch with left vertebral artery artery arising from the arch. Mild plaque involving the great vessels. Carotid vessels are patent without significant stenosis by NASCET criteria. Mild plaque right bifurcation and mild to moderate calcific left bifurcation noted without hemodynamically significant stenosis or narrowing. Left dominant vertebral artery. Right vertebral artery is Vertebral arteries hypoplastic. Both vertebral arteries patent throughout the cervical course. Vertebral arteries, basilar artery. Basilar artery, basilar tip and basilar bifurcation patent. Posterior cerebral arteries are patent stents Intracranial ICAs are patent. Suspected fenestration M1/carotid terminus. Otherwise MCAs are patent. ACAs are patent. Dural venous sinuses are patent. CT/CT angio head IMPRESSION: Negative for large vessel occlusion or hemodynamically significant stenosis. Impression dictated by: Jesus Amor M.D. 06/24/2025 6:18 PM Dictation Location: [place] [address] Electronically authenticated by: [id number] Y Date: 06/24/2025 18:18
--- NOTE | 2025-06-24 16:50 | P.EN_ITS ---
Event Note Event Note: MRI showed evidence of acute LT CVA. Pt is already on xarelto and ASA. Pt presented to [facility] a day after he went to [facility] ER and was discharged home. I ordered stat CTA Head and neck. Contine A/C and ASA.
--- NOTE | 2025-06-24 18:11 | P.CACN_ITS ---
History of Present Illness History of Present Illness Consult date: 06/24/25 Requesting physician: Vel Duron Consult reason: atrial fibrillation Chief complaint: RHABDOMYDYSIS Narrative: This is a 75-year-old man with prior history of hypertension but no clear cardiac history who is admitted with stroke, falls and atrial fibrillation. He was in usual state of health until 2 or 3 days ago when he was at home and went to the bathroom and then fell on the floor. His was in the house and she called EMS and he was transferred to [facility] where he underwent head and chest x-rays and was discharged back home. He then did not feel well and fell again and EMS were called again and he was transferred to the [facility]. At the [facility] he was discovered to be in atrial fibrillation which was a new diagnosis for him. He was admitted for management. MRI of the brain showed left anterior cerebral artery strokes which appear to be embolic in origin. He was started on Xarelto 10 mg daily and aspirin 81 mg daily. Echocardiogram today showed concentric left ventricular hypertrophy preserved LVEF at 55% and mildly dilated right ventricle with normal systolic function. There was a possibility of a bicuspid aortic valve with mild mitral tricuspid regurgitation and mildly elevated right-sided pressures. Review of his rhythm strips shows atrial fibrillation with episodes of nonsustained ventricular tachycardia. Currently he says that he is feeling okay. He denies chest pain. He says that his breathing is at baseline and his says that he breathes as heavy usually. On admission he had lower extremity edema that has improved. Review of Systems ROS Status of ROS 10 or more systems reviewed and unremark able except as noted in history and below Cardiovascular Reports: edema; Denies: chest pain, palpitations or shortness of breath when lying down [facility] Medical History (Updated 06/24/25 @ 18:22 by KAYLEEN RASMUSSEN) Carpal tunnel syndrome on both sides ?G56.03 - Carpal tunnel syndrome, bilateral upper limbs (ICD-10) Kidney stone ?N20.0 - Calculus of kidney (ICD-10) Sleep apnea ?G47.30 - Sleep apnea, unspecified (ICD-10) BPH (benign prostatic hyperplasia) ?N40.0 - Benign prostatic hyperplasia without lower urinary tract symptoms (ICD-10) Ureteral stone ?N20.1 - Calculus of ureter (ICD-10) Surgical History (Updated 06/22/25 @ 17:38 by Kaya Corado) H/O left knee surgery ?Z98.890 - Other specified postprocedural states (ICD-10) History of lithotripsy ?Z98.890 - Other specified postprocedural states (ICD-10) Family History (Updated 06/22/25 @ 17:35 by Kaya Corado) Mother Family history of colon cancer Father Family history of throat cancer Social History (Updated 06/22/25 @ 17:40 by Kaya Corado) Within the past year, how often did you have a drink containing alcohol: 2-4 times a month Within the past year, how many standard drinks containing alcohol did you have on a typical day: 1 or 2 Within the past year, how often did you have six or more drinks on one occasion: never Total score: 0 Score interpretation: A score less than 4 is consistent with normal alcohol consumption. Smoking status: Never smoker Second hand tobacco smoke exposure: No Non-prescribed substance use: cannabis (any form) Previous occupational history: [employer] Known occupational exposures/hazards: No Highest level of school completed/degree received: high school graduate Do you want help with school or training: No Are you now , , , , never or living with a partner: In a typical week, how many times do you talk on the telephone with family, friends, or neighbors: 3 or more times per week How often do you get together with friends or relatives: 3 or more times per week How often do you attend temple or presybeterian services: never Do you belong to any clubs or organizations such as temple groups unions, fraternal or athletic groups, or school groups: no Total score: 2 Score interpretation: A score of greater than or equal to 2 indicates the lowest level of social isolation. Little interest or pleasure in doing things: not at all Feeling down, depressed, or hopeless: not at all Feel stressed/tense/nervous/anxious/difficulty sleeping: not at all Due to disability, difficulty making decisions: No Do you think of yourself as: straight/heterosexual Gender Identity: male Meds Home Medications and Allergies Home Medications ?Medication ?Instructions ?Recorded ?Confirmed ?Type amlodipine 10 mg tablet 10 mg PO DAILY 06/22/2506/04 History naproxen 500 mg tablet 500 mg PO Q12H PRN pain 06/0406/22/25 History Allergies Allergy/AdvReac Type Severity Reaction Status Date / Time No Known Drug Allergies Allergy Verified 06/22/25 13:31 Exam Constitutional Vital Signs, click to edit/add: Last Vital Signs Temp 97.8 F 06/24/25 16:17 Pulse 84 06/24/25 16:17 Resp 18 06/24/25 16:17 BP 153/83 H 06/24/25 16:17 Pulse Ox 95 06/24/25 16:17 O2 Del Method Room Air 06/24/25 16:17 O2 Flow Rate 2 06/24/25 07:27 Nutritional appearance: obese Orientation/consciousness: Yes awake, Yes oriented to person, Yes oriented to place and Yes oriented to time HENMT Common normals: normocephalic Eye Common normals: EOMs intact bilaterally and conjunctivae normal Chest Common normals: inspection of chest normal Respiratory Effort & inspection: labored ( reports breathing effort at baseline) Auscultation: clear to auscultation bilaterally; no crackles and no wheezes Cardio Rhythm: abnormal rhythm irregularly irregular Heart sounds: S1 normal and S2 normal; no murmurs Extremity General: edema Neuro Common normals: oriented x3, moves all extremities and no sensory deficits noted Psych Memory/cognition: memory grossly intact Insight: insight good Judgement: judgment good Results Labs and Meds Lab results: Lipids 06/24/25 Range/Units 04:46 Triglycerides 114 (<=150) mg/dL Cholesterol 125 (<=200) mg/dL HDL Cholesterol 31 L (40-60) mg/dL Cholesterol/HDL Ratio 4.0 CBC 06/24/25 Range/Units 04:44 WBC 16.7 H (4.0-11.0) 10^3/uL RBC 4.17 L (4.70-6.10) 10^6/uL Hgb 12.7 L (14.0-18.0) g/dL Hct 37.9 L (42.0-54.0) % Plt Count 224 (150-450) 10^3/uL Comprehensive Metabolic Panel 06/24/25 Range/Units 04:46 Sodium 145 (136-145) mmol/L Potassium 3.7 (3.5-5.1) mmol/L Chloride 109 H (98-107) mmol/L Carbon Dioxide 23.9 (21.0-32.0) mmol/L BUN 45.0 H (7.0-18.0) mg/dL Creatinine 1.10 (0.70-1.30) mg/dL Glucose 135 H (74-106) mg/dL Calcium 8.6 (8.5-10.1) mg/dL Intake and Output 06/24/25 06/24/25 06/24/25 07:59 15:59 23:59 Intake Total 240 / 2440 480 / 480 Output Total 650 / 1850 200 / 200 Balance -410 / 590 280 / 280 Intake: Oral 240 / 1440 480 / 480 Output: Urine Amount (Catheter) 650 / 1450 200 / 200 Urethral 650 / 1450 200 / 200 Other: # Bowel Movements 1 1 Assessment and Plan Assessment and Plan (1) Persistent atrial fibrillation: (2) Nonsustained ventricular tachycardia: (3) Acute left arterial ischemic stroke, MONIK (anterior cerebral artery): (4) Hypertension: Qualifiers: Hypertension type: primary hypertension Qualified Code(s): I10 - Essential (primary) hypertension (5) Generalized weakness: (6) Fall: Qualifiers: Encounter type: initial encounter Qualified Code(s): W19.XXXA - Unspecified fall, initial encounter (7) Rhabdomyolysis: (8) Obesity: Qualifiers: Obesity classification: adult class 3 (BMI >= 40) Plan This is a complex situation. He has newly discovered persistent atrial fibrillation and acute stroke likely related to the atrial fibrillation with an embolic mechanism. Review of his rhythm strips shows episodes of nonsustained ventricular tachycardia. His LVEF is preserved by echocardiography and he likely has bicuspid aortic valve. His chads Vascor is 4 due to stroke, hypertension and age. He would require long-term anticoagulation therapy. I discussed the above findings with him and his . I think given the complex situation he needs a higher level of care. He requires investigation of the nonsustained ventricular tachycardia with coronary angiography. In addition I think he would benefit from obtaining a transesophageal echocardiogram to rule out any residual intracardiac thrombus. In addition he needs direct evaluation by the stroke neurology team which is not available here at the [facility] except via telemedicine. Given the above I am recommending transfer to [facility] for further management.
--- NOTE | 2025-06-24 18:36 | PM.EN ---
Event Note Event Note: I called his Ana Laura and gave her update on MRI finding. i informed her that pt had been on blood thinner ( Xarelto ) for A fib and ASA for ischemic CVA since he came in . I informed her that story editor wants him to be transferred to [facility] for cardiac investigation and likely to be seen by neuro team. gave me permission to transfer him. is very appreciative of care he had received her at [facility].
--- NOTE | 2025-06-24 21:28 | PC.NURSE ---
[facility] called with a bed. pt was notified and [facility] contact to set up transport. RN called pt's to update
--- NOTE | 2025-06-24 22:37 | PC.NURSE ---
RN and TUMBLER MACHINE OPERATOR in room to clean and change patient. [facility] arrived. satellite project site monitor was removed. Report was given to them; and nurses assisted in getting the patient onto the stretcher. Belongs were sent with patient. Report was then called at 2227 to Becky DOWELL at [facility]. Pt discharged at 2234.
[2025-06-25 04:16] LABS: A. calcoaceticus-baumannii Cpx NOT DETECTED (NOT DETECTE); Bacteroides fragilis NOT DETECTED (NOT DETECTE); Candida auris NOT DETECTED (NOT DETECTE); Candida glabrata NOT DETECTED (NOT DETECTE); Enterobacterales NOT DETECTED (NOT DETECTE); Enterococcus faecalis NOT DETECTED (NOT DETECTE); Enterococcus faecium NOT DETECTED (NOT DETECTE); Klebsiella aerogenes NOT DETECTED (NOT DETECTE); Klebsiella pneumoniae group NOT DETECTED (NOT DETECTE); Proteus spp. NOT DETECTED (NOT DETECTE); Salmonella spp. NOT DETECTED (NOT DETECTE); Serratia marcescens NOT DETECTED (NOT DETECTE); Staphylococcus epidermidis NOT DETECTED (NOT DETECTE); Staphylococcus lugdunensis NOT DETECTED (NOT DETECTE); Stenotrophomonas maltophilia NOT DETECTED (NOT DETECTE); Streptococcus pyogenes NOT DETECTED (NOT DETECTE); Streptococcus spp. NOT DETECTED (NOT DETECTE)
[2025-06-25 06:09] LABS: Source BLD
[2025-06-25 06:12] LABS: Staphylococcus spp. DETECTED (NOT DETECTE)
--- NOTE | 2025-06-25 08:09 | PM.DS1 ---
DS: Providers Provider Date of admission: 06/22/25 16:35 Primary care physician: VLADIMIR ARCHULETA Consults: 06/22/25 16:00 Occupational Therapy Eval and Treat Routine Reason for consultation: Weakness Physical Therapy Eval and Treat Routine Reason for consultation: Weakness 06/24/25 09:09 Consult to Cardiology Routine Reason for consultation: new onset A fib probable SSS 06/24/25 16:52 Consult to TeleNeurology Routine Reason for consultation: CVA Speech Therapy Eval and Treat Routine Reason for consultation: CVA Anticipated date of discharge: 06/24/25 DS: Diagnosis Discharge Diagnosis (1) Persistent atrial fibrillation: (2) Nonsustained ventricular tachycardia: (3) Acute left arterial ischemic stroke, MONIK (anterior cerebral artery): (4) Hypertension: Qualifiers: Hypertension type: primary hypertension Qualified Code(s): I10 - Essential (primary) hypertension (5) Generalized weakness: (6) Fall: Qualifiers: Encounter type: initial encounter Qualified Code(s): W19.XXXA - Unspecified fall, initial encounter (7) Rhabdomyolysis: (8) Obesity: Qualifiers: Obesity classification: adult class 3 (BMI >= 40) (9) CVA (cerebral vascular accident): Plan As listed above, below and others that are not listed DS: Summary Hospital Course Hospital Course: Mr. Gleason is a 75-year-old gentleman who was brought to the emergency room at [facility] a day after he was taken to [facility] emergency room after a fall and patient was cleared to be discharged home. Please refer to [facility] record for details. Patient was discharged home however he felt very weak after a fall and could not stand up as expected. His set up mattress on the floor she can sleep on the floor. The next morning the patient could not stand up as usual therefore called 911 and brought to the emergency room at [facility]. Patient was awake. He denied any acute pain or ache other than chronic low back pain. Patient was able to answer questions. Was unable to engage in complex conversation therefore his was able to provide information. Patient was able to follow command. He had symmetrical facial musculature. He has symmetrical motor and tone. He was able to lift up his upper and lower extremities against gravity. Patient was found to have rhabdomyolysis which may be contributing to his generalized weakness and muscle fatigue. Patient also was found to have A-fib. Rate is controlled. CAT scan of the head does not show any acute intracranial process. No unilateral neurological deficit. No sensory loss. I accepted to admit the patient to the medical floor. I started him on IV fluid for rhabdomyolysis. His CPK came down. His troponin was negative. I requested echocardiogram which came back subsequently showing no evidence of cardiomyopathy. His chads Vascor was 2. I started him on Xarelto for embolic stroke prevention and also on aspirin for ischemic stroke prevention. I requested physical Occupational Therapy. Unfortunately patient did not progress as expected and hopeful therefore I ordered MRI of the brain to rule out acute stroke as well as MRI of the cervical, lumbar and thoracic spine rule out spinal cord compression related to his fall causing him to feel weak and having symmetrical motor deficit. MRI of the lumbar spine showed lumbar disc degeneration MRI of the brain showed acute left anterior cerebral bleed. Patient is already on aspirin and Xarelto Patient presented to [facility] emergency room at least 24 hours after the initial fall. Patient obviously is not candidate for tPA. I requested CTA of the head and neck which came back negative for occlusion or dissection. Patient was having intermittent episode of SVT and also intermittent episode of bradycardia. I suspected that the patient may have sick sinus syndrome. I consulted cardiology to evaluate his cardiac condition. Patient was seen by seed sales manager. Please refer to his note for details. He recommended patient to have additional cardiac investigation which may include cath or MINA. Real Estate Underwriter recommended to transfer him to [place] for additional cardiac investigation. I talked to the about it. is in agreement to proceed I had communicated with the [facility] hospitalist and I discussed his case with Dr. Barker. He accepted patient to be admitted there to proceed with additional cardiovascular investigation as deemed to be appropriate by cardiology team and also to allow for additional neurological evaluation and recommendation. Patient was transferred to [facility] in stable condition. His neurological status and condition did not get worse from the minute I excepted him up until the minute he was physically transferred out. Patient maintained his ability to focus, concentrate, answer simple questions follow simple command and maintain symmetrical motor status. Patient was able to lift up his arms and legs against gravity and some resistance but unable to support his body to stand up and ambulate. Patient was started on Xarelto and aspirin already prior to MRI showing stroke. Patient was transferred to [facility] based on cardiology recommendation. Possible sick sinus syndrome. Possible underlying CAD. No clinical evidence of ACS. The timing of cardiac cath in view of his acute/subacute stroke would need to be addressed by cardiology team given their expertise. had been updated throughout the day yesterday about the diagnostic and treatment plan. is very appreciative of the care that he had received here at [facility] as compared to [facility]. Time Spent with Patient Time attestation: Total time spent providing and/or coordinating discharge services: Exam Constitutional Vital Signs, click to edit/add: Last Vital Signs Temp 98.1 F 06/24/25 19:41 Pulse 83 06/24/25 20:00 Resp 20 06/24/25 19:41 BP 102/63 06/24/25 19:41 Pulse Ox 92 L 06/24/25 19:41 O2 Del Method Room Air 06/24/25 19:41 O2 Flow Rate 2 06/24/25 07:27 DS: Data Data Completed and Pending Labs on day of discharge: Labs from last 24 hours 06/24/25 09:29 Specimen Source Bld A.calcoaceticus-baumannii cmplx PCR Not detected Bacteroides fragilis Not detected Amara albicans (PCR) Not detected Amara auris (PCR) Not detected C. glabrata (PCR) Not detected C. krusei (PCR) Not detected C. parapsilosis (PCR) Not detected C. tropicalis (PCR) Not detected C. neoform/gattii (PCR) Not detected Enterobacterales (PCR) Not detected E. cloacae complex PCR Not detected Enterococc faecalis PCR Not detected Enterococc faecium PCR Not detected E. coli (PCR) Not detected H. influenzae (PCR) Not detected Klebsiella aerogenes (PCR) Not detected Klebsiella oxytoca PCR Not detected K. pneumoniae group (PCR) Not detected List. monocytogenes PCR Not detected N. meningitidis (PCR) Not detected Proteus spp. (copies/mL) Not detected Salmonella spp. (PCR) Not detected Serratia marcescens PCR Not detected Staphylococcus sp PCR Detected A* Staph aureus (PCR) Not detected mecA/C & MREJ Resist Gene Not applicable mecA/C-Methicil Resis Gene Not applicable mcr-1 Colistin Res Gene PCR Not applicable Staph epidermidis (PCR) Not detected Staph lugdunensis (TEM-PCR) Not detected S. maltophilia (PCR) Not detected Streptococcus sp PCR Not detected Strep agalactiae (PCR) Not detected Strep pneumoniae (PCR) Not detected S. pyogenes (PCR) Not detected P. aeruginosa (PCR) Not detected Irene/B-Vanco Res Genes Not applicable blaIMP Car res Gene PCR Not applicable KPC (blaKPC) Detect PCR Not applicable NDM (blaNDM) Detect PCR Not applicable OXA-48 Carbapenem Resis Gene (PCR) Not applicable blaVIM Car Res Gene PCR Not applicable CTX-M ESBL (PCR) Not applicable Preliminary micro results at discharge 06/24/25 09:29 Blood Culture Result 1 - Preliminary Blood Discharge Plan Discharge Disposition: [facility] Condition: Fair Discharge Date/Time: 06/24/25 22:35 Discharge Location: [facility]
--- NOTE | 2025-06-25 10:22 | SWNOTE1 ---
Pt was transferred to [facility], SW informed Barrie of transfer to [facility].
== END 2025-06-24 22:35 | disposition short-term general hospital (02) | DRG 308 ==
LOC: ER 15:34 → MS 16:49
PROVIDERS: Admitting Provider Internal Medicine; Emergency Provider Emergency Medicine; Family Provider Internal Medicine; PCP Internal Medicine; Visit Provider Internal Medicine
DX: I48.19 Other persistent atrial fibrillation (principal); I63.9 Cerebral infarction, unspecified; M62.82 Rhabdomyolysis; Z68.41 Body mass index [BMI] 40.0-44.9, adult; E66.01 Morbid (severe) obesity due to excess calories; R53.1 Weakness; Z91.81 History of falling; I10 Essential (primary) hypertension; B36.8 Other specified superficial mycoses; D64.9 Anemia, unspecified; G47.30 Sleep apnea, unspecified; Z87.442 Personal history of urinary calculi; N40.0 Benign prostatic hyperplasia without lower urinary tract symptoms; M51.369 Other intervertebral disc degeneration, lumbar region without mention of lumbar back pain or lower extremity pain; I47.20 Ventricular tachycardia, unspecified; I49.5 Sick sinus syndrome
CPT/HCPCS: 36415; 51702; 70450; 70496; 70498; 70551; 71045; 72148; 80048; 80053; 80061; 81001; 82550; 83605; 83874; 84443; 84484; 85025; 85027; 87040; 87088; 87150; 87186; 93005; 93306; 96360; 96361; 97161; 97165; 97535; 99285; J0696; Q9967